=== PATIENT | female | born 1995 | race Caucasian/White ===

== ENCOUNTER → 2021-02-21 14:27 | Outpatient (BNVA) | payer MEDICAID, SELFPAY | PROVIDERS: PCP Internal Medicine; Visit Provider Advanced Practice Midwife | DX: N92.6 Irregular menstruation, unspecified (principal) | CPT/HCPCS: 99212 ==

== ENCOUNTER 2021-02-24 15:21 | Outpatient (REF) | payer MEDICAID, SELFPAY ==
--- NOTE | ~2021-02-24 | US_ITS ---
EXAMINATION: US OBSTETRICAL ULTRASOUND CLINICAL INFORMATION: Unknown LMP. COMPARISON: None. LMP: 12/19/2020. Gestational age by maternal dates is 9 weeks 4 days. Estimated date of delivery by maternal dates is 09/25/2021. TECHNIQUE: Transabdominal pelvic ultrasound was performed. FINDINGS: There is a single intrauterine gestational sac with visible yolk sac, embryo/fetus, and cardiac activity. There is no significant subchorionic hemorrhage or hematoma. HR: 156 beats per minute. CRL (crown rump length): 1.67 cm (8 weeks and 4 days +/- 4 days). DEON (estimated date of delivery): 10/05/2021 +/- 4 days. MATERNAL ADNEXA: The right maternal ovary not seen. The left maternal ovary measures 3.04 x 1.72 x 2.79 cm. There is no significant maternal adnexal mass. No maternal pelvic ascites. US/US OB <= 14 weeks fetus IMPRESSION: 1. Single intrauterine gestation with ultrasound gestational age of 8 weeks and 1 day +/- 4 days. 2. Estimated date of delivery is 10/05/2021 +/- 4 days. 3. No maternal adnexal mass or pelvic ascites.
== END 2021-02-24 15:22 | disposition home or self-care (01) ==
LOC: HO.HMGCX 15:21
PROVIDERS: PCP Internal Medicine; Visit Provider Advanced Practice Midwife
DX: N92.6 Irregular menstruation, unspecified (principal)
CPT/HCPCS: 76801

== ENCOUNTER → 2021-03-03 14:10 | Outpatient (BNVA) | payer MEDICAID, SELFPAY | PROVIDERS: PCP Internal Medicine; Visit Provider Advanced Practice Midwife | DX: Z13.89 Encounter for screening for other disorder (principal) | CPT/HCPCS: 99212 ==

== ENCOUNTER 2021-03-15 15:08 | Outpatient (REF) | payer MEDICAID, SELFPAY ==
[2021-03-16 10:37] LABS: CT PCR NOT DETECTED (Not Detect.); NG PCR NOT DETECTED (Not Detect.)
== END 2021-03-15 15:09 | disposition home or self-care (01) ==
LOC: HO.LAB 15:08
PROVIDERS: PCP Internal Medicine; Visit Provider Advanced Practice Midwife
DX: O99.281 Endocrine, nutritional and metabolic diseases complicating pregnancy, first trimester (principal); E05.00 Thyrotoxicosis with diffuse goiter without thyrotoxic crisis or storm; Z3A.11 11 weeks gestation of pregnancy; Z20.2 Contact with and (suspected) exposure to infections with a predominantly sexual mode of transmission
CPT/HCPCS: 87491; 87591; 88142; 99212

== ENCOUNTER 2021-03-18 14:35 | Outpatient (REF) | payer MEDICAID, SELFPAY ==
--- NOTE | ~2021-03-18 | US_ITS ---
EXAMINATION: OBSTETRICAL ULTRASOUND, FIRST TRIMESTER HISTORY: 25-year-old at 11.2 weeks of gestation NT screening COMPARISON: 02/24/2019 TECHNIQUE: Real time transabdominal imaging with color and M-mode Doppler. FINDINGS: A single, live IUP CRL of 44.5 mm c/w 11.2wks is noted. Heart Rate: 163 beats per minute. Normal yolk sac seen. NT was 0.9.mm. NB Present The embryo appears sonographically wnl for this GA. Both maternal ovaries are seen and appear normal. GESTATIONAL AGE: 1. Established GA: 11.2 wks 2. GA from [facility]: 11.2 wks ESTIMATED DATE OF DELIVERY: 1. Established DEON: 10/05/2021 2. DEON from A: 10/05/2021 US/US OB 1T nuc measure IMPRESSION: 1. A single live IUP 2. Size equals dates 3. NT of 0.9 mm MFM Consultation: I reviewed the ultrasound findings along with significance of NT measurement. The NT of less than 3mm is generally reassuring. However, the sensitivity for T21 detection is only 60%. I reviewed the availability of serum aneuploidy screening which includes cell-free DNA and placental protein based tests. I discussed the sensitivity, false-positive rate, and other limitations associated with each test. I also reviewed the availability of invasive diagnostic tests that are associated small but definite risk of miscarriage. We also reviewed the differences between screening tests and diagnostic tests. After our discussion, she opted for the First trimester screening that is based on cell-free DNA or non-invasive testing (NIPT). A follow up at 18 weeks for survey has been scheduled. Thank you very much for this referral. Total time 20 minutes. The time spent was devoted to counseling the patient about the disease and diagnosis, coordinating care including reviewing her records, pertinent lab data and studies, as well as discussing diagnostic evaluation and workup, plan therapeutic interventions and future disposition of care. This includes any additional research needed to obtain further information in formulating the plan of care of this patient. This note was generated with a voice recognition program. Please excuse any errors which may have been overlooked during my review of this note. Sometimes these errors may affect the content or meaning of a given sentence.
== END 2021-03-18 14:36 | disposition home or self-care (01) ==
LOC: HO.US 14:35
PROVIDERS: Visit Provider Advanced Practice Midwife
DX: Z36.82 Encounter for antenatal screening for nuchal translucency (principal)
CPT/HCPCS: 76813

== ENCOUNTER → 2021-04-13 14:33 | Outpatient (BNVA) | payer MEDICAID, SELFPAY | PROVIDERS: PCP Internal Medicine; Visit Provider Advanced Practice Midwife | DX: Z36.3 Encounter for antenatal screening for malformations (principal); Z34.91 Encounter for supervision of normal pregnancy, unspecified, first trimester; Z3A.15 15 weeks gestation of pregnancy | CPT/HCPCS: 81003; 99212 ==

== ENCOUNTER 2021-05-06 13:13 | Outpatient (REF) | payer MEDICAID, SELFPAY ==
--- NOTE | ~2021-05-06 | US_ITS ---
EXAMINATION: US OBSTETRICAL CLINICAL INFORMATION: 25-year-old at 18.2 weeks of gestation Suspected anomaly COMPARISON: 03/18/2021 TECHNIQUE: Real-time transabdominal ultrasound was performed using C1-5 megahertz transducer. FINDINGS: A single, active, fetus is seen in vertex presentation. The placenta is posterior without previa, and the amniotic fluid volume is wnl. MEASUREMENTS: 1. Biparietal Diameter: 4.1 cm; 18.4 wks 2. Occipital Frontal Diameter: 5.2 cm 3. Head Circumference: 15.0 cm; 18.1 wks 4. Abdominal Circumference: 12.3 cm; 18.0 wks 5. Femur Length: 2.6 cm; 18.1 wks 6. Humerus Length: 4.5 cm; 17.5 wks 7. Tibia Length: 2.1 cm; 17.5 wks 8. Ulna Length: 2.3 cm; 18.3 wks 9. Lateral ventricle: 0.5 cm 10. Cerebellum: 1.9 cm; 19.0 wks 11. Cisterna Magna: 0.3 cm 12. Nuchal Fold: 3.4 mm 13. Heart Rate: 152 beats per minute Rt ovary: normal Lt ovary: normal Cervical length 3.2 cm on T/A. GESTATIONAL AGE: 1. Established GA: 18.2 wks 2. GA from [facility]: 18.2 wks ESTIMATED DATE OF DELIVERY: 1. Established DEON: 10/05/2021 2. DEON from [facility]: 10/05/2021 ANATOMY: The visualized anatomy includes but not limited to: 1. Cranium: Normal 2. Intracranial anatomy: cavum septum pellucidi, lateral ventricles, choroid plexus, cerebellum, posterior fossa, third and fourth ventricles. 3. face: orbits, lip/palate, profile, nasal bone 4. Heart: four-chamber view of the heart, ventricular septum, foramen ovale, pulmonary vein, left and right outflow tracts, three-vessel view, 3 vessel trachea view, aortic and ductal arches, situs.. 5. Diaphragm: Normal 6. Abdominal wall: Normal 7. Cord Insertion: Normal 8. Spine: Cervical, thoracic, lumbar, sacral. 9. Stomach: Normal size and shape 10. Right Kidney: Normal 11. Left Kidney: Normal 12. 3 vessel cord: Normal 13. Upper extremity: Open hands, fifth digit. 14. Lower extremity: Tibia, fibula, bilateral feet. 15. Bladder: Normal 16. Genitalia: Female, patient unaware US/US OB /maternal detail IMPRESSION: 1. Single, living, intrauterine with appropriate biometry. 2. Normal survey DISCUSSION: I reviewed today's ultrasound findings. We discussed the limitations of ultrasound in diagnosing aneuploidy and other congenital abnormalities. I reviewed the differences between screening test and diagnostic test. Amniocentesis was discussed and declined. She was informed that the baseline incidence of congenital abnormalities is approximately 3-5%. Not all these conditions are diagnosable in utero. RECOMMENDATIONS: 1. Follow-up as clinically indicated Thank you for allowing me to participate in her care. Total time 20 minutes. The time spent was devoted to counseling the patient about the disease and diagnosis, coordinating care including reviewing her records, pertinent lab data and studies, as well as discussing diagnostic evaluation and workup, plan therapeutic interventions and future disposition of care. This includes any additional research needed to obtain further information in formulating the plan of care of this patient. This note was generated with a voice recognition program. Please excuse any errors which may have been overlooked during my review of this note. Sometimes these errors may affect the content or meaning of a given sentence.
== END 2021-05-06 13:14 | disposition home or self-care (01) ==
LOC: HO.US 13:13
PROVIDERS: Visit Provider Advanced Practice Midwife
DX: Z34.92 Encounter for supervision of normal pregnancy, unspecified, second trimester (principal); Z36.3 Encounter for antenatal screening for malformations
CPT/HCPCS: 76811

== ENCOUNTER → 2021-05-12 14:22 | Outpatient (BNVA) | payer MEDICAID, SELFPAY | PROVIDERS: Visit Provider Advanced Practice Midwife | DX: Z34.02 Encounter for supervision of normal first pregnancy, second trimester (principal); Z3A.19 19 weeks gestation of pregnancy | CPT/HCPCS: 99212 ==

== ENCOUNTER → 2021-06-09 15:02 | Outpatient (BNVA) | payer MEDICAID, SELFPAY | PROVIDERS: Visit Provider Advanced Practice Midwife ==

== ENCOUNTER 2021-06-15 11:57 | Outpatient (REF) | payer MEDICAID, SELFPAY ==
[2021-06-15 13:32] LABS: Appearance Urine CLEAR; Color Urine YELLOW; Glucose Urine UA NEG (NEG); Leukocyte Esterase Urine NEG (NEG); Nitrite Urine NEG (NEG); PH 6.5 (5.0-8.0); Specific Gravity - Urine 1.015 (1.005-1.025); Urine Blood NEG (NEG); Urine Ketones NEG (NEG); Urine Protein NEG (NEG-TRACE)
[2021-06-15 13:54] LABS: Amphetamine Screen Urine Not Detected (Not Detect); Barbiturates, Urine Not Detected (Not Detect); Benzodiazepines Screen Urine Not Detected (Not Detect); Cannabinoid Screen Urine Not Detected (Not Detect); Cocaine Screen Urine Not Detected (Not Detect); Fentanyl, urine Not Detected (Not Detect); Opiate Screen Urine Not Detected (Not Detect); Phencyclidine Screen Urine Not Detected (Not Detect)
[2021-06-15 14:22] LABS: Hematocrit 34.6 % (37-47); Mean Corpuscular HGB Conc 34.7 g/dl (31.0-35.0); Mean Corpuscular Hemoglobin 28.8 pg (27.0-33.0); Mean Corpuscular Volume 83.2 fL (80-98); Mean Platelet Volume 10.9 fL (9.4-12.3); Platelet Count 226 X10*3/uL (160-400); Red Blood Count 4.16 X10*6/uL (4.20-5.50); White Blood Count 9.9 X10*3/uL (4.8-10.8)
[2021-06-15 14:42] LABS: Glucose 1 Hour PP 50gm Dose 97 mg/dL (60-140)
[2021-06-15 15:08] LABS: TSH reflex Free T4 (Prenatal) < 0.01 uIU/mL (0.32-4.0)
[2021-06-15 15:14] LABS: Syphilis Screen Nonreactive (Nonreactive)
[2021-06-15 15:52] LABS: Free T4 (Free Thyroxine) 1.15 ng/dL (0.71-1.85)
[2021-06-16 04:26] LABS: HBsAGNum1 0.72 S/CO (0.00-0.99); HIV AB/AG Nonreactive (Nonreactive); HIV Num 1 0.06 S/CO (0.00-0.99); Hepatitis B Surface Antigen Negative (Negative); ~HepC Num1 0.12 S/CO (0.00-0.79); ~Hepatitis C Antibody Nonreactive (Nonreactive)
== END 2021-06-15 11:58 | disposition home or self-care (01) ==
LOC: HO.LAB 11:57
PROVIDERS: Absent Provider Advanced Practice Midwife; Visit Provider Advanced Practice Midwife
DX: Z34.90 Encounter for supervision of normal pregnancy, unspecified, unspecified trimester (principal)
CPT/HCPCS: 80307; 81003; 84439; 85027; 86762; 86780; 86787; 86803; 86850; 86900; 86901; 87086; 87088; 87186; 87340; 87389

== ENCOUNTER → 2021-07-07 14:36 | Outpatient (BNVA) | payer MEDICAID, SELFPAY | PROVIDERS: Visit Provider Advanced Practice Midwife | DX: Z34.02 Encounter for supervision of normal first pregnancy, second trimester (principal); Z3A.27 27 weeks gestation of pregnancy; Z13.31 Encounter for screening for depression | CPT/HCPCS: 81003; 99212 ==

== ENCOUNTER → 2021-07-25 15:06 | Outpatient (BNVA) | payer MEDICAID, SELFPAY | PROVIDERS: Visit Provider Obstetrics & Gynecology | DX: O99.283 Endocrine, nutritional and metabolic diseases complicating pregnancy, third trimester (principal); E05.00 Thyrotoxicosis with diffuse goiter without thyrotoxic crisis or storm; Z3A.29 29 weeks gestation of pregnancy | CPT/HCPCS: 99212 ==

== ENCOUNTER 2021-07-29 10:03 | Outpatient (REF) | payer MEDICAID, SELFPAY ==
--- NOTE | ~2021-07-29 | US_ITS ---
EXAMINATION: OBSTETRICAL ULTRASOUND, Follow up HISTORY: 21-year-old at the 30.2 weeks of gestation Size date discrepancy Graves' disease COMPARISON: 05/06/2021 TECHNIQUE: Real time transabdominal imaging with color and M-mode Doppler. PRESENTATION: Vertex PLACENTA LOCATION: Posterior without previa AMNIOTIC FLUID: MARTY 14.5 MEASUREMENTS: 1. Biparietal Diameter: 6.8 cm; 27.3 wks 2. Head Circumference: 26.7 cm; 29.2 wks 3. Abdominal Circumference: 25.4 cm; 29.5 wks 4. Femur Length: 5.8 cm; 29.4 wks 5. Heart Rate: 132 beats per minute WEIGHT: EFW: 1380 grams (3 lbs 1 oz) -- 13 %. BIOPHYSICAL PROFILE: Motion: 2 Tone: 2 Breathin Amniotic Fluid: 2 Total score: 8/8 Doppler: UA SD 3.2 GESTATIONAL AGE: 1. Established GA: 30.2 wks 2. GA from [facility]: 29.0 wks ESTIMATED DATE OF DELIVERY: 1. Established DEON: 10/05/2021 2. DEON from [facility]: 10/14/2021 US/US OB follow up IMPRESSION: 1. Single active fetus is in vertex presentation 2. Size equals dates, EFW corresponds to 13th percentile 3. Reassuring biophysical profile with normal amniotic fluid index The patient was recently diagnosed with Graves' disease. So far she denies symptomatic hyperthyroidism and has done well without treatment. She has an stereotype finisher monitoring her thyroid function. However, treatment with the methimazole is being considered. I informed the patient that use of methimazole in appears to be acceptable, especially in second and third trimester. The alternative is PTU which has similar side effect profile. I reviewed the potential risks to the fetus of uncontrolled hyperthyroidism. In addition we discussed the impact of long lasting thyroid receptor stimulating antibody on the fetus. She will be transferring her obstetrical care to [facility] where her stereotype finisher is. Thank you very much for this referral. Total time 30 minutes. The time spent was devoted to counseling the patient about the disease and diagnosis, coordinating care including reviewing her records, pertinent lab data and studies, as well as discussing diagnostic evaluation and workup, plan therapeutic interventions and future disposition of care. This includes any additional research needed to obtain further information in formulating the plan of care of this patient. This note was generated with a voice recognition program. Please excuse any errors which may have been overlooked during my review of this note. Sometimes these errors may affect the content or meaning of a given sentence.
--- NOTE | ~2021-07-29 | US_ITS ---
EXAMINATION: OBSTETRICAL ULTRASOUND, Follow up HISTORY: 21-year-old at the 30.2 weeks of gestation Size date discrepancy Graves' disease COMPARISON: 05/06/2021 TECHNIQUE: Real time transabdominal imaging with color and M-mode Doppler. PRESENTATION: Vertex PLACENTA LOCATION: Posterior without previa AMNIOTIC FLUID: MARTY 14.5 MEASUREMENTS: 1. Biparietal Diameter: 6.8 cm; 27.3 wks 2. Head Circumference: 26.7 cm; 29.2 wks 3. Abdominal Circumference: 25.4 cm; 29.5 wks 4. Femur Length: 5.8 cm; 29.4 wks 5. Heart Rate: 132 beats per minute WEIGHT: EFW: 1380 grams (3 lbs 1 oz) -- 13 %. BIOPHYSICAL PROFILE: Motion: 2 Tone: 2 Breathin Amniotic Fluid: 2 Total score: 8/8 Doppler: UA SD 3.2 GESTATIONAL AGE: 1. Established GA: 30.2 wks 2. GA from [facility]: 29.0 wks ESTIMATED DATE OF DELIVERY: 1. Established DEON: 10/05/2021 2. DEON from [facility]: 10/14/2021 US/US OB velocimetry umbilical ar IMPRESSION: 1. Single active fetus is in vertex presentation 2. Size equals dates, EFW corresponds to 13th percentile 3. Reassuring biophysical profile with normal amniotic fluid index The patient was recently diagnosed with Graves' disease. So far she denies symptomatic hyperthyroidism and has done well without treatment. She has an business quality assurance analyst monitoring her thyroid function. However, treatment with the methimazole is being considered. I informed the patient that use of methimazole in appears to be acceptable, especially in second and third trimester. The alternative is PTU which has similar side effect profile. I reviewed the potential risks to the fetus of uncontrolled hyperthyroidism. In addition we discussed the impact of long lasting thyroid receptor stimulating antibody on the fetus. She will be transferring her obstetrical care to [facility] where her business quality assurance analyst is. Thank you very much for this referral. Total time 30 minutes. The time spent was devoted to counseling the patient about the disease and diagnosis, coordinating care including reviewing her records, pertinent lab data and studies, as well as discussing diagnostic evaluation and workup, plan therapeutic interventions and future disposition of care. This includes any additional research needed to obtain further information in formulating the plan of care of this patient. This note was generated with a voice recognition program. Please excuse any errors which may have been overlooked during my review of this note. Sometimes these errors may affect the content or meaning of a given sentence.
== END 2021-07-29 10:04 | disposition home or self-care (01) ==
LOC: HO.US 10:03
PROVIDERS: Visit Provider Obstetrics & Gynecology
DX: O26.899 Other specified pregnancy related conditions, unspecified trimester (principal); E05.00 Thyrotoxicosis with diffuse goiter without thyrotoxic crisis or storm
CPT/HCPCS: 76816; 76820

== ENCOUNTER → 2021-11-07 11:35 | Outpatient (BNVA) | payer MEDICAID, SELFPAY | PROVIDERS: Visit Provider Advanced Practice Midwife ==

== ENCOUNTER → 2021-11-09 10:08 | Outpatient (BNVA) | payer MEDICAID, SELFPAY | PROVIDERS: PCP Internal Medicine; Visit Provider Advanced Practice Midwife | DX: Z30.46 Encounter for surveillance of implantable subdermal contraceptive (principal); Z30.41 Encounter for surveillance of contraceptive pills | CPT/HCPCS: 11982 ==

== ENCOUNTER 2022-09-14 23:30 | Emergency (ER) | payer MEDICAID, SELFPAY ==
[2022-09-14 23:34] VITALS: BP 125/76; PULSE 96; RESP 20; TEMP 36.2; O2SAT 97; BMI 24.3
[2022-09-15 00:22] LABS: Strep A Nucleic Acid Negative (Negative)
[2022-09-15 00:37] LABS: COVID-19 Test Negative (Negative); IDNOW Serial# 16C4AD1C; IDNOW Serial# BCCEAD1C; Influenza A Negative (Negative); Influenza B2 Negative (Negative)
--- NOTE | 2022-09-15 00:45 | ED.URI ---
HPI - URI/Sore Throat General Chief Complaint: Upper Respiratory Symptoms Stated Complaint: tonsil pain Time Seen by Provider: 09/15/22 00:45 Source: patient Mode of arrival: ambulatory Limitations: no limitations History of Present Illness HPI Narrative: 26-year-old female presents with tonsillar pain. States that she has had intermittent tonsillar pain over the past few weeks, over the last week she has had flu-like symptoms accompanied with her tonsillar pain. She is able to swallow secretions, but is difficult for her to swallow food. She reports intermittent fevers, and fatigue. MD elicited complaint: fever and sore throat Onset (ago): week(s) (2) Consistency: intermittent and progressively worsening Severity: moderate Pain scale (0-10): 7 Description of mucous: clear Able to tolerate fluids by mouth: Yes Exacerbating factors: swallowing Relieving factors: nothing Context: sick contacts Associated symptoms: fever, myalgias and sore throat Treatments prior to arrival: acetaminophen, ibuprofen and antibiotics Related Data Home Medications Medication Instructions Recorded Confirmed desogestrel-e.estradiol 0.15 1 tab PO DAILY 11/07/21 mg-0.02 mg(21)/e.estrad 0.01 mg(5) tablet (Kariva (28)) Previous Rx's Medication Instructions Recorded amoxicillin 875 mg-potassium 1 tab PO Q12H 10 days #20 tabs 09/15/22 clavulanate 125 mg tablet Allergies Allergy/AdvReac Type Severity Reaction Status Date / Time No Known Allergies Allergy Verified 09/14/22 23:37 Review of Systems Review of Systems: Constitutional: positive Fever, positive Chills, positive fatigue, positive Malaise ENT/Mouth: positive sore throat, no runny nose Eyes: No redness or pain. Cardiovascular: No Chest Pain, No SOB Respiratory: No Cough, No Sputum, No Wheezing, No Smoke Exposure, No Dyspnea Gastrointestinal: No Nausea, No Vomiting, No Diarrhea Musculoskeletal: positive Myalgia Skin: No rash Neuro: No Headache Yes all other systems are reviewed and are negative PMFSH Past Medical History Attestation statement: The following information was validated with the patient. Source: old records reviewed Medical History COVID-19 Graves' disease Surgical History History of breast surgery Family History Family History Father HTN (hypertension) Mother No problems noted. Maternal Grandmother Alzheimer's dementia Maternal Grandfather Kidney disease Dialysis patient Paternal Grandmother Mitral valve prolapse Colon cancer Paternal Grandfather CAD (coronary artery disease) Social History Social History Household Members: Significant Other and Children Household Members Other:: Children of significant other Housing: Apartment Are you a primary medical care administrator to a significant other at home: No Do you presently have visiting nurse or other home services: No Alcohol intake: never Patient Tobacco Use Status: Never used Tobacco Advance Directives: No Advance Directives Information Provided: Yes Physical Exam Vital Signs: Vital Signs: Last Vital Signs Temp 97.2 F 09/14/22 23:34 Pulse 96 09/14/22 23:34 Resp 20 09/14/22 23:34 BP 125/76 09/14/22 23:34 Pulse Ox 97 09/14/22 23:34 O2 Del Method 09/14/22 23:34 BMI result Body Mass Index 24.3 Appearance: Alert. Oriented X3. Moderate distress. Eyes: Pupils equal, round and reactive to light. Sclera nonicteric. ENT: Pharynx erythematous with bilateral tonsillar exudates. No indication of abscess or tonsillar swelling. Neck: Normal inspection. Neck supple. Anterior posterior cervical lymphadenopathy noted. No mastoid tenderness noted. No vertebral tenderness or nuchal rigidity. No meningeal signs. CVS: Normal heart rate and rhythm. Pulses normal. Respiratory: No respiratory distress. Breath sounds normal. Abdomen: Soft and nontender. No hepatosplenomegaly. Skin: Skin warm and dry. Normal skin color. Normal skin turgor. Extremities: Gait well-balanced well coordinated. Neuro: No motor deficit. No sensory deficit. Cranial nerves 2-12 intact. Course Course Course Narrative: 26-year-old female presents with 2 weeks of upper respiratory symptoms, with worsening tonsillar pain. Physical exam indicates pharyngeal erythema with bilateral tonsillar exudates. Tonsils are not swollen, no indication of abscess or epiglottitis. Patient has been taking amoxicillin, was left over from her daughter's dose for strep 2 weeks ago. Although COVID influenza and strep a test are negative, I feel that patient's symptoms are consistent with strep a pharyngitis. I will treat with Augmentin. Patient understands that she should not be taking antibiotics that are not prescribed to her. Supportive measures of Tylenol, Motrin, and salt water gargle discussed. Patient verbalized understanding of and agrees to plan of care discharge home. Verbalized understanding of signs and symptoms indicating need for emergent intervention. Medical Decision Making Medical Decision Making Differential Diagnoses: Differential diagnosis (Influenza, COVID, pharyngitis, epiglottitis, abscess) Consideration of admission/observation: Consideration of Admission/Observation (Patient does not require admission) Lab Attestation: I reviewed the patient's lab results. Lab results narrative: Negative results Tests considered but not performed: Tests Considered But Not Performed (CT scan to rule out peritonsillar abscess, however patient's tonsils are bilaterally equal without significant swelling. Low likelihood of abscess at this time.) Discharge Plan Discharge Clinical Impression: Pharyngitis Patient Disposition: Home, Self-Care Instructions: Pharyngitis (ED) Additional Instructions: You were evaluated for 2 weeks of intermittent upper respiratory symptoms, with worsening tonsillar pain. You do have bilateral tonsillar exudates and redness to the back of the throat consistent with strep pharyngitis. Your strep pharyngitis test was negative however your physical exam is positive. Please take Augmentin 875 mg twice a day for the next 10 days. Take Tylenol 650 mg every 6 hours and Motrin 600 mg every 6 hours as needed for pain and fever management. Write down what time you take these medications to prevent accidental overdose. Use warm water sea salt gargles, consider using honey and [id number] lidocaine lozenges to help with pain. Follow the directions on the package for lidocaine lozenges. Thank you for choosing this emergency department for evaluation. Please follow-up with primary care physician as needed. Return to the emergency department for any new, concerning, or worsening symptoms. Prescriptions: New amoxicillin-pot clavulanate 875-125 mg tablet 1 tab PO Q12H 10 Days Qty: 20 0RF No Action desog-e.estradiol/e.estradiol [Kariva (28)] 0.15-0.02 mgx21 /0.01 mg x 5 tablet 1 tab PO DAILY
[2022-09-15] MEDS: Amoxicillin/Potassium Clav 875 MG TABLET PO (01:30)
== END 2022-09-15 02:49 | disposition home or self-care (01) ==
PROVIDERS: Emergency Provider Internal Medicine
DX: J02.9 Acute pharyngitis, unspecified (principal); R50.9 Fever, unspecified; M79.10 Myalgia, unspecified site; Z20.822 Contact with and (suspected) exposure to COVID-19; Z79.899 Other long term (current) drug therapy
CPT/HCPCS: 87502; 87635; 87651; 99282; 99283

== ENCOUNTER 2023-03-15 18:16 | Emergency (ER) | payer OTHER, SELFPAY ==
[2023-03-15 18:29] VITALS: BP 119/67; PULSE 90; RESP 16; TEMP 36.6; O2SAT 97; BMI 26.0
--- NOTE | 2023-03-15 18:31 | ED_ITS ---
HPI - General Adult General Chief complaint: General Medical Stated complaint: Discomfort in uterus Time Seen by Provider: 03/15/23 19:48 Source: patient Mode of arrival: ambulatory Limitations: no limitations History of Present Illness HPI narrative: 27-year-old female presents to the ED white vaginal discharge, vaginal itching, and uterine discomfort. patient denies any vaginal bleeding, vaginal lesions, flank pain, dysuria, hematuria, nausea, vomitting, or any pmh of STDs. patient states normal STD testing in [facility]. patient states she fell on her back two days ago. patient denies hitting head, loss of concsiosuness, vaginal bleeding, rectal bleeding, vomitting, blood, blood in urine, chest pain, headache, nausea, or vomitting. Related Data Home Medications Medication Instructions Recorded Confirmed desogestrel-e.estradiol 0.15 1 tab PO DAILY 11/07/21 mg-0.02 mg(21)/e.estrad 0.01 mg(5) tablet (Kariva (28)) Previous Rx's Medication Instructions Recorded amoxicillin 875 mg-potassium 1 tab PO Q12H 10 days #20 tabs 09/15/22 clavulanate 125 mg tablet metronidazole 500 mg tablet 500 mg PO Q12H 7 days #14 tabs 03/15/23 Allergies Allergy/AdvReac Type Severity Reaction Status Date / Time No Known Allergies Allergy Verified 03/15/23 18:29 Review of Systems Review of Systems: vaginal discharge, vaginal itchienss, uterine discmofot Yes all other systems are reviewed and are negative PMFSH Past Medical History Medical History COVID-19 Graves' disease Surgical History History of breast surgery Family History Family History Father HTN (hypertension) Mother No problems noted. Maternal Grandmother Alzheimer's dementia Maternal Grandfather Kidney disease Dialysis patient Paternal Grandmother Mitral valve prolapse Colon cancer Paternal Grandfather CAD (coronary artery disease) Social History Social History Household Members: Significant Other and Children Household Members Other:: Children of significant other Housing: Apartment Are you a primary child care lead teacher to a significant other at home: No Do you presently have visiting nurse or other home services: No Alcohol intake: never Patient Tobacco Use Status: Never used Tobacco Advance Directives: No Advance Directives Information Provided: No Physical Exam ED Vital Signs: Vital Signs - 24 hr 03/15/23 18:29 Temperature 97.8 F Pulse Rate 90 Respiratory Rate 16 Blood Pressure 119/67 Pulse Oximetry 97 Oxygen Delivery Method Room Air BMI result Body Mass Index 26.0 Const General: cooperative, healthy appearing, comfortable, no acute distress, well developed, alert, awake and Physically active Orientation/consciousness: oriented to person, oriented to place, oriented to time and patient oriented x3 HENMT Head: Yes normal to inspection, Yes No palpable skull fracture present, Yes normocephalic, Yes atraumatic and No abrasion Ears: hearing grossly normal bilaterally, external ears normal, TM's normal bilaterally, EAC's normal, mastoids normal and no periauricular adenopathy Throat: Yes posterior oropharynx normal, Yes tonsils normal and Yes uvula midline Eyes General: appearance normal, both eyes and all related structures Neck Neck: Yes normal visual inspection, Yes full ROM, Yes no lymphadenopathy, Yes no meningeal signs, Yes trachea midline, Yes supple, No anterior neck swelling and No tender Chest Chest palpation & inspection: normal inspection of the chest and normal palpation of entire chest wall Resp Effort & Inspection: normal respiratory effort and able to speak in complete sentences Auscultation: clear to auscultation bilaterally Cardio Jugular venous distension: no JVD Heart sounds: S1 normal heart sound present and S2 normal heart sound present GI Inspection: Yes normal to inspection and No abdominal wall ecchymosis Palpation (GI): Soft to palpation, not firm, nontender, no guarding and not ri gid General: No CVA tenderness and Yes no CVA tenderness External Female Exam: normal external appearance Speculum Exam - Vagina: abnormal vaginal discharge white (white cottage cheese) Speculum Exam - Cervix: normal appearance of the cervix Bimanual exam- vagina & uterus: normal bimanual exam Back/Spine/Pelvis Back: no CVA tenderness, No CVA tenderness and No back tenderness Skin General skin exam: no rashes or lesions noted and elasticity normal Neuro General: oriented to person, oriented to place, oriented to time, patient oriented x3, gait normal, tone normal, moves all extremities, Normal light touch and pain sensation, no meningeal signs, no focal motor deficits, CN's II-XI intact bilaterally and normal sensation to monofilament Extrem General: Yes normal to inspection and Yes full ROM Psych Appearance: grossly normal, well kempt and not disheveled Course Course Course Narrative: RME- 27 year old female presents for evaluation of lower abdominal / pelvis pain. She reports that she got her IUD removed 3 months ago. Also endorses white vaginal discharge. Denies new sexual partners or concern for STIs Reevaluation(s) Reevaluation #1: Pelvic exam positive for yeast like vaginitis disccharge. patient does not want Emperic treatment for CTNG. Presently no indication for ultrasound. not suspecting ovarian torsions/abscess, uterine rupture/fibroid rupture. Abdomen is bening. Medications Administered Discontinued Medications Generic Name Dose Route Start Last Admin Trade Name Freq PRN Reason Stop Dose Admin Fluconazole 150 mg 03/15/23 21:10 03/15/23 21:16 Fluconazole 150 Mg Tablet PO 03/15/23 21:11 150 mg ONCE ONE Administration Medical Decision Making Medical Decision Making [facility] Narrative: 27 yold female presents to the ED for vaginal dsicharge, vaginal itching, and uterine discomfot. abdominal exam is bening. labs normal and UA negative for /UTI. exam inidicate vaginitits. patient deos not emperic STI treatment. Patient given one dose of dilfucan into the ED. Differential Diagnosis Differential Diagnoses: The differential diagnosis associated with the presentation includes (UTI, , CTNG, PID, Ovarian torsion/abscess, fibroids rupture, uterine rupture, Vaginitis) Admission/Observation Consideration of admission/observation: Escalation of care including admission/observation considered Lab Data [facility] Lab Attestation statement: I reviewed the patient's lab results. 03/15/23 18:46 03/15/23 18:46 Labs: Lab Results 03/15/23 03/15/23 03/15/23 Range/Units 18:46 18:46 19:21 WBC 8.1 (4.8-10.8) X10*3/uL RBC 4.87 (4.20-5.50) X10*6/uL Hgb 13.2 (12.0-16.0) g/dl Hct 39.2 (37.0-47.0) % MCV 80.5 (80.0-98.0) fL MCH 27.1 (27.0-33.0) pg MCHC 33.7 (31.0-35.0) g/dl RDW 12.6 (11.0-16.0) % Plt Count 252 (160-400) X10*3/uL MPV 11.0 (9.4-12.3) fL Immature Gran % (Auto) 0.1 (0.0-0.4) % Neut % (Auto) 59.4 (45-73) % Lymph % (Auto) 30.2 (20-40) % [place] % (Auto) 8.6 (2-11) % Eos % (Auto) 1.5 (0-4) % Baso % (Auto) 0.2 (0-2) % Lymph # (Auto) 2.4 (1.2-4.9) X10*3/uL [place] # (Auto) 0.7 (0.1-1.2) X10*3/uL Eos # (Auto) 0.1 (0.0-0.4) X10*3/uL Baso # (Auto) 0.0 (0.0-0.2) X10*3/uL Abs Immat Gran (auto) 0.01 (0.00-0.03) X10*3/uL Absolute Neuts (auto) 4.8 (2.0-8.3) x10*3/uL Absolute Nucleated RBC 0.000 (0.0-0.012) X10*3/uL Nucleated RBC % (auto) 0.0 (0.0-0.2) /100WBC Sodium 143 (135-145) mmol/L Potassium 4.1 (3.3-5.1) mmol/L Chloride 108 (96-108) mmol/L Carbon Dioxide 26 (22-29) mmol/L Anion Gap 13 (12-20) BUN 10 (9-16) mg/dL Creatinine 0.74 (0.5-1.4) mg/dL Estim Creat Clear Calc 98.9 Estimated GFR > 60 Random Glucose 95 (60-115) mg/dL Calcium 9.4 (8.4-10.2) mg/dL Beta HCG, Quant < 2 mIU/mL Urine Color Yellow Urine Appearance Clear Urine pH 6.0 (5.0-9.0) Ur Specific [place] 1.025 (1.005-1.025) Urine Protein Negative (Neg-Trace) mg/dL Urine Glucose (UA) Negative (Negative) mg/dL Urine Ketones Negative (Negative) mg/dL Urine Blood Negative (Negative) Urine Nitrite Negative (Negative) Ur Leukocyte Esterase Negative (Negative) Urine RBC 0-2 (0-2) /HPF Urine WBC 0-5 (0-5) /HPF Ur Squamous Epith Cells 3-5 (0-2) /HPF Urine Bacteria 4+ (None Seen) Hyaline Casts 0-2 (0-2) /LPF Urine Test (NEGATIVE) Mercy species DNA (Negative) Chlam trachomat DNA PCR (Not Detect.) Gardnerella DNA Probe (Negative) N.gonorrhoeae DNA (PCR) (Not Detect.) Trichomonas DNA Probe (Negative) 03/15/23 03/15/23 03/15/23 Range/Units 19:21 20:29 20:29 WBC (4.8-10.8) X10*3/uL RBC (4.20-5.50) X10*6/uL Hgb (12.0-16.0) g/dl Hct (37.0-47.0) % MCV (80.0-98.0) fL MCH (27.0-33.0) pg MCHC (31.0-35.0) g/dl RDW (11.0-16.0) % Plt Count (160-400) X10*3/uL MPV (9.4-12.3) fL Immature Gran % (Auto) (0.0-0.4) % Neut % (Auto) (45-73) % Lymph % (Auto) (20-40) % [place] % (Auto) (2-11) % Eos % (Auto) (0-4) % Baso % (Auto) (0-2) % Lymph # (Auto) (1.2-4.9) X10*3/uL [place] # (Auto) (0.1-1.2) X10*3/uL Eos # (Auto) (0.0-0.4) X10*3/uL Baso # (Auto) (0.0-0.2) X10*3/uL Abs Immat Gran (auto) (0.00-0.03) X10*3/uL Absolute Neuts (auto) (2.0-8.3) x10*3/uL Absolute Nucleated RBC (0.0-0.012) X10*3/uL Nucleated RBC % (auto) (0.0-0.2) /100WBC Sodium (135-145) mmol/L Potassium (3.3-5.1) mmol/L Chloride (96-108) mmol/L Carbon Dioxide (22-29) mmol/L Anion Gap (12-20) BUN (9-16) mg/dL Creatinine (0.5-1.4) mg/dL Estim Creat Clear Calc Estimated GFR Random Glucose (60-115) mg/dL Calcium (8.4-10.2) mg/dL Beta HCG, Quant mIU/mL Urine Color Urine Appearance Urine pH (5.0-9.0) Ur Specific [place] (1.005-1.025) Urine Protein (Neg-Trace) mg/dL Urine Glucose (UA) (Negative) mg/dL Urine Ketones (Negative) mg/dL Urine Blood (Negative) Urine Nitrite (Negative) Ur Leukocyte Esterase (Negative) Urine RBC (0-2) /HPF Urine WBC (0-5) /HPF Ur Squamous Epith Cells (0-2) /HPF Urine Bacteria (None Seen) Hyaline Casts (0-2) /LPF Urine Test NEGATIVE (NEGATIVE) Mercy species DNA Positive A (Negative) Chlam trachomat DNA PCR NOT DETECTED (Not Detect.) Gardnerella DNA Probe Positive A (Negative) N.gonorrhoeae DNA (PCR) NOT DETECTED (Not Detect.) Trichomonas DNA Probe Negative (Negative) Prescription Management I considered prescription management with: Antibiotic (Diflucan, metronidazole) Discharge Plan Discharge Clinical Impression: Vaginitis Patient Disposition: Home, Self-Care Instructions: Bacterial Vaginosis (ED), Yeast Infection (ED), Pelvic Pain in Women (ED), Vaginal Discharge (ED) Additional Instructions: Return to the ED immediately for any abdominal pain, vaginal bleeding, nausea, vomitting, flank pain, vaginal discharge, fever, chills, pelvic pain, or any other concerning symptoms. Please follow up with PCP and OBGYN Prescriptions: New metronidazole 500 mg tablet 500 mg PO Q12H 7 Days Qty: 14 0RF No Action amoxicillin-pot clavulanate 875-125 mg tablet 1 tab PO Q12H 10 Days Qty: 20 0RF desog-e.estradiol/e.estradiol [Brian (28)] 0.15-0.02 mgx21 /0.01 mg x 5 tablet 1 tab PO DAILY Interventions: ED Discharge Assessment Last Done: 03/15/23 21:19 Discharge Date/Time: 03/15/23 21:19 Print Language: Taiwanese
[2023-03-15 18:50] LABS: MANUAL DIFF FLAG NO
[2023-03-15 18:52] LABS: Basophils Percent Auto 0.2 % (0-2); Eosinophils Absolute Auto 0.1 X10*3/uL (0.0-0.4); Eosinophils Percent Auto 1.5 % (0-4); Hematocrit 39.2 % (37.0-47.0); Hemoglobin 13.2 g/dl (12.0-16.0); Imm Gran Abs Auto 0.01 X10*3/uL (0.00-0.03); Imm Gran Pct Auto 0.1 % (0.0-0.4); Lymphocytes Absolute Auto 2.4 X10*3/uL (1.2-4.9); Lymphocytes Percent Auto 30.2 % (20-40); Mean Corpuscular HGB Conc 33.7 g/dl (31.0-35.0); Mean Corpuscular Hemoglobin 27.1 pg (27.0-33.0); Mean Corpuscular Volume 80.5 fL (80.0-98.0); Monocytes Absolute Auto 0.7 X10*3/uL (0.1-1.2); Monocytes Percent Auto 8.6 % (2-11); Neutrophils Absolute Auto 4.8 x10*3/uL (2.0-8.3); Neutrophils Percent Auto 59.4 % (45-73); Platelet Count 252 X10*3/uL (160-400); Red Blood Count 4.87 X10*6/uL (4.20-5.50); Red Cell Distribution Width 12.6 % (11.0-16.0); White Blood Count 8.1 X10*3/uL (4.8-10.8)
[2023-03-15 19:10] LABS: Anion Gap 13 (12-20); Blood Urea Nitrogen 10 mg/dL (9-16); Calcium 9.4 mg/dL (8.4-10.2); Carbon Dioxide 26 mmol/L (22-29); Chloride 108 mmol/L (96-108); Creatinine Clr Calc Pharmacy 98.9; Estimated Glomerular Filt Rate > 60; Glucose Random 95 mg/dL (60-115); Potassium 4.1 mmol/L (3.3-5.1); Sodium 143 mmol/L (135-145)
[2023-03-15 19:11] LABS: HCG Quantitative < 2 mIU/mL
[2023-03-15 19:29] LABS: Appearance Urine Clear; Color Urine Yellow; Glucose Urine UA Negative (Negative); Leukocyte Esterase Urine Negative (Negative); Nitrite Urine Negative (Negative); Specific Gravity - Urine 1.025 (1.005-1.025); Urine Blood Negative (Negative); Urine Ketones Negative (Negative); Urine Protein Negative (Neg-Trace)
[2023-03-15 19:34] LABS: Bacteria Urine 4+ (None Seen); Hyaline Casts Urine 0-2 /LPF (0-2); RBC Urine 0-2 /HPF (0-2); WBC Urine 0-5 /HPF (0-5)
[2023-03-15 19:54] LABS: UPreg QC Valid YES; Urine Pregnancy NEGATIVE (NEGATIVE)
[2023-03-15] MEDS: Fluconazole 150 MG TABLET PO (21:16)
--- NOTE | 2023-03-15 21:19 | PC.NURSE ---
pt medicated per DEC- verbalizes understanding of Dc instructions
[2023-03-16 10:30] LABS: CT PCR NOT DETECTED (Not Detect.); NG PCR NOT DETECTED (Not Detect.)
[2023-03-16 11:13] LABS: BV Int Neg Control Negative (Negative); BV Int Pos Control Positive (Positive)
== END 2023-03-15 21:19 | disposition home or self-care (01) ==
PROVIDERS: Physician Assistant; Student in an Organized Health Care Education/Training Program; Emergency Provider Internal Medicine
DX: N76.0 Acute vaginitis (principal); R10.2 Pelvic and perineal pain
CPT/HCPCS: 0353U; 36415; 80048; 81001; 81025; 84702; 85025; 87480; 87510; 87660; 99282; 99283

== ENCOUNTER 2024-02-04 09:11 | Emergency (ER) | payer OTHER, SELFPAY ==
[2024-02-04 09:14] VITALS: BP 142/82; PULSE 113; RESP 16; TEMP 36; O2SAT 100; BMI 25.2
--- NOTE | 2024-02-04 09:49 | ED.GENADULT ---
HPI - General Adult General Chief complaint: Ear Problems Stated complaint: Bilateral ear pain Time Seen by Provider: 02/04/24 09:35 Source: patient Mode of arrival: ambulatory Limitations: no limitations History of Present Illness HPI narrative: Patient is a 28-year-old female presenting to the emergency department with complaint of bilateral ear irritation, right worse than left since last night. States that she has recently had a cold with nasal congestion and her ears felt blocked. She states last night she used a wet Q-tip to clean out her ears in the irritation increased after this. She denies fevers, cough, shortness of breath. Denies any chest pain or palpitations. Denies any sore throat or painful swallowing. MD complaint: Ear pain Onset (ago): day(s) Associated symptoms: other (Nasal congestion) Treatments prior to arrival: other (DayQuil and NyQuil) Related Data Home Medications ?Medication ?Instructions ?Recorded ?Confirmed desogestrel-e.estradiol 0.15 1 tab PO DAILY 11/07/21 mg-0.02 mg(21)/e.estrad 0.01 mg(5) tablet (Kariva (28)) Previous Rx's ?Medication ?Instructions ?Recorded amoxicillin 875 mg-potassium 1 tab PO Q12H 10 days #20 tabs 09/15/22 clavulanate 125 mg tablet metronidazole 500 mg tablet 500 mg PO Q12H 7 days #14 tabs 03/15/23 cetirizine 10 mg capsule (All Day 10 mg PO DAILY #7 caps 02/04/24 Allergy (cetirizine)) fluticasone propionate 50 2 spray intranasal DAILY 7 days 02/04/24 mcg/actuation nasal #16 grams spray,suspension (Flonase Allergy Relief) Allergies Allergy/AdvReac Type Severity Reaction Status Date / Time No Known Allergies Allergy Verified 02/04/24 09:18 Review of Systems Review of Systems: As per HPI. Yes all other systems are reviewed and are negative Constitutional: Constitutional: Reports as per HPI [facility] Past Medical History Medical History COVID-19 Graves' disease Surgical History History of breast surgery Family History Family History Father HTN (hypertension) Mother No problems noted. Maternal Grandmother Alzheimer's dementia Maternal Grandfather Kidney disease Dialysis patient Paternal Grandmother Mitral valve prolapse Colon cancer Paternal Grandfather CAD (coronary artery disease) Social History Social History Household Members: Significant Other and Children Household Members Other:: Children of significant other Housing: Apartment Are you a primary animal care supervisor to a significant other at home: No Do you presently have visiting nurse or other home services: No Alcohol intake: never Patient Tobacco Use Status: Never used Tobacco Advance Directives: No Advance Directives Information Provided: Yes Do you have a plan to hurt others: No Plan Physical Exam ED Vital Signs: Vital Signs - 24 hr 02/04/24 09:14 Temperature 96.8 F Pulse Rate 113 H Respiratory Rate 16 Blood Pressure 142/82 H Pulse Oximetry 100 Oxygen Delivery Method Room Air BMI result Body Mass Index 25.2 Vital signs have been reviewed and appear to be correct. Blood pressure normal. Heart rate normal. Respiratory rate normal. Temperature normal. Oxygen saturation normal. Const General: cooperative, healthy appearing and no acute distress Orientation/consciousness: oriented to person, oriented to place, oriented to time and patient oriented x3 Limitations: no limitations [facility] Head: Yes normocephalic and Yes atraumatic Ears: hearing grossly normal bilaterally, external ears normal, EAC's normal, mastoids normal bilaterally, no periauricular adenopathy and TM abnormal erythematous bilateral; not bulging, not with effusion, with no fluid behind the TM and not perforated General nose exam: Normal external nose present Face and sinus: Yes face symmetric Mouth: oropharynx normal and moist mucous membranes Throat: Yes uvula midline Eyes Pupils: Equal, round and reactive pupils present Neck Neck: Yes normal visual inspection and Yes supple Resp Effort & Inspection: normal respiratory effort and able to speak in complete sentences Auscultation: clear to auscultation bilaterally Cardio Rate: regular rate Rhythm: regular rhythm Heart sounds: S1 normal heart sound present and S2 normal heart sound present GI Palpation (GI): Soft to palpation and nontender Auscultation: normoactive bowel sounds General: Yes no CVA tenderness Back/Spine/Pelvis Back: no CVA tenderness Skin General skin exam: elasticity normal and turgor normal Neuro General: oriented to person, oriented to place, oriented to time, patient oriented x3, moves all extremities, no focal motor deficits and CN's II-XI intact bilaterally Cranial nerves: Yes Equal, round and reactive pupils present Cognition (Neuro): normal cognition Extrem General: Yes full ROM, Yes no pedal edema and Yes no calf tenderness Psych Mental Status: mental status grossly normal Affect: normal affect Thought process: Normal thought process present Medical Decision Making Medical Decision Making [facility] Narrative: Patient is a 28-year-old female presenting to the emergency department with complaint of bilateral ear irritation, right worse than left since last night. On exam patient is awake, A+Ox3, VS WNL, afebrile, normal neurological exam without focal deficits, physical exam findings as above. Given reported symptoms and physical exam findings, initial differential includes localized irritation to TMs, otitis media, otitis externa. Do not suspect mastoiditis. Discussed with patient that physical exam findings are not consistent with infection at this time. Advised patient to begin using a daily allergy medications such as cetirizine or loratadine as well as Flonase to decrease inflammation. Discussed with patient that she should not insert Q-tips or any other small items into her ear canal as this can cause damage to her TM. Patient is specifically requesting antibiotics and discussed with patient that antibiotics are not indicated at this time. Return precautions discussed. Patient verbalized understanding of plan. Differential Diagnosis Differential Diagnoses: The differential diagnosis associated with the presentation includes As per MDM. External Record Review External record reviewed: Inpatient record, Office record and Outpatient record Prescription Management I considered prescription management with: Other Discharge Plan Discharge Clinical Impression: Irritation of tympanic membrane of both ears Patient Disposition: Home, Self-Care Additional Instructions: You were evaluated in the emergency department today for complaint of pain to both ears. Your evaluation did not show evidence of any infection. It does show evidence of some irritation to her eardrums. We recommend that you begin taking a daily loratadine (Claritin) or cetirizine (Zyrtec) as well as begin using [id number] Flonase. You should not insert Q-tips or any other small objects into her ear canals as this can cause further irritation and damage to her eardrums. Please follow-up with your primary care provider. Return to the emergency department if you develop increasing pain, fever, difficulty hearing or any other concerning symptoms. Prescriptions: New fluticasone propionate [Flonase Allergy Relief] 50 mcg/actuation spray,suspension 2 spray intranasal DAILY 7 Days Qty: 16 0RF Rx Instructions: administer into each nostril All Day Allergy (cetirizine) 10 mg capsule 10 mg PO DAILY Qty: 7 0RF No Action amoxicillin-pot clavulanate 875-125 mg tablet 1 tab PO Q12H 10 Days Qty: 20 0RF metronidazole 500 mg tablet 500 mg PO Q12H 7 Days Qty: 14 0RF desog-e.estradiol/e.estradiol [Kodyiva (28)] 0.15-0.02 mgx21 /0.01 mg x 5 tablet 1 tab PO DAILY Print Language: Taiwanese
[2024-02-04 10:31] VITALS: BP 129/76; PULSE 107; RESP 18; TEMP 36.7; O2SAT 100
[2024-02-04 10:32] LABS: Influenza A PCR NEGATIVE (Negative); Influenza B PCR NEGATIVE (Negative); Resp Syncy Virus RNA Qual PCR NEGATIVE (Negative); SARS COV2 PCR INHOUSE NEGATIVE (Negative)
== END 2024-02-04 10:32 | disposition home or self-care (01) ==
PROVIDERS: Emergency Provider Emergency Medicine; PCP Internal Medicine
DX: H92.03 Otalgia, bilateral (principal); Z11.52 Encounter for screening for COVID-19; Z20.822 Contact with and (suspected) exposure to COVID-19
CPT/HCPCS: 0241U; 99282; 99283

== ENCOUNTER 2025-03-04 11:45 | Emergency (ER) | payer OTHER, SELFPAY ==
[2025-03-04 12:21] VITALS: BP 131/72; PULSE 104; RESP 16; TEMP 37; O2SAT 100; BMI 25.1
--- NOTE | 2025-03-04 12:24 | ED.URI ---
HPI - URI/Sore Throat General Chief Complaint: Upper Respiratory Symptoms Stated Complaint: Runny Nose, Mucus, Sore Throat Time Seen by Provider: 03/04/25 12:21 Source: patient and old records reviewed Mode of arrival: ambulatory Limitations: no limitations History of Present Illness ED Provider: GRACIELA CAMPO Narrative: 29 yo female with PMH of graves disease here with c/o nasal congestion and green phlegm has sore throat as well. She tried claritin and sudafed with little relief. She has not had fevers. She states her medications are not helping. She has facial pain as well. MD elicited complaint: sinus pain Onset (ago): week(s) (2) Consistency: progressively worsening Severity: moderate Description of mucous: green Able to tolerate fluids by mouth: Yes Exacerbating factors: changing head position Relieving factors: nothing Associated symptoms: headache, rhinorrhea and nasal congestion Treatments prior to arrival: other Related Data Home Medications ?Medication ?Instructions ?Recorded ?Confirmed desogestrel-e.estradiol 0.15 1 tab PO DAILY 11/07/21 mg-0.02 mg()/e.estrad 0.01 mg(5) tablet (Kariva ()) Previous Rx's ?Medication ?Instructions ?Recorded amoxicillin 875 mg-potassium 1 tab PO Q12H 10 days #20 tabs 09/15/22 clavulanate 125 mg tablet metronidazole 500 mg tablet 500 mg PO Q12H 7 days #14 tabs 03/15/23 cetirizine 10 mg capsule (All Day 10 mg PO DAILY #7 caps 02/04/24 Allergy (cetirizine)) fluticasone propionate 50 2 spray intranasal DAILY 7 days 02/04/24 mcg/actuation nasal #16 grams spray,suspension (Flonase Allergy Relief) amoxicillin 875 mg-potassium 1 tab PO BID #14 tabs 03/04/25 clavulanate 125 mg tablet prednisone 20 mg tablet 40 mg (2 x 20 mg) PO DAILY 5 days 03/04/25 #10 tabs Allergies Allergy/AdvReac Type Severity Reaction Status Date / Time No Known Allergies Allergy Verified 03/04/25 12:23 Review of Systems Review of Systems: Constitutional : No Fever, No Chills, No Fatigue ENT/Mouth : No sore throat, No Rhinorrhea, pos sinus pain and pos congestion Eyes: No Eye Pain, No Swelling, No Redness Cardiovascular : No Chest Pain, No SOB, No Dyspnea on Exertion Respiratory : No Cough, No Sputum Gastrointestinal : No Nausea, No Vomiting, No Diarrhea, No abdominal Pain Genitourinary : No Dysuria, No Urinary Frequency, No Hematuria, Musculoskeletal : No joint pain, No Myalgias, No Joint Swelling Skin : No Skin Lesions, No rash Neuro : No Weakness, No Numbness, No Dizziness, positive Headache All other systems reviewed and are negative [facility] Past Medical History Attestation statement: The following information was validated with the patient. Source: old records reviewed Medical History COVID-19 Graves' disease Surgical History History of breast surgery Family History Family History Father HTN (hypertension) Mother No problems noted. Maternal Grandmother Alzheimer's dementia Maternal Grandfather Kidney disease Dialysis patient Paternal Grandmother Mitral valve prolapse Colon cancer Paternal Grandfather CAD (coronary artery disease) Social History Social History Household Members: Significant Other and Children Household Members Other:: Children of significant other Housing: Apartment Are you a primary care program director to a significant other at home: No Do you presently have visiting nurse or other home services: No Alcohol intake: never Patient Tobacco Use Status: Never used Tobacco Advance Directives: No Advance Directives Information Provided: Yes Do you have a plan to hurt others: No Plan Physical Exam Vital Signs: Vital Signs: Last Vital Signs Temp 98.6 F 03/04/25 12:21 Pulse 104 H 03/04/25 12:21 Resp 16 03/04/25 12:21 BP 131/72 03/04/25 12:21 Pulse Ox 100 03/04/25 12:21 BMI result Body Mass Index 25.1 Appearance: Alert. Oriented X3. No acute distress. Eyes: Pupils equal, round and reactive to light. ENT: Pharynx normal. sinus ttp and pain on bilateral max sinus, TMs normal bilaterally Neck: Normal inspection. Neck supple. CVS: Normal heart rate and rhythm. Pulses normal. Respiratory: No respiratory distress. Breath sounds normal. Abdomen: Soft and nontender. Skin: Skin warm and dry. Normal skin color. Normal skin turgor. Extremities: No lower extremity edema. No calf ttp Neuro: Oriented X 3. No motor deficit. No sensory deficit. CN2-12 intact Medical Decision Making Medical Decision Making [facility] Narrative: 29 yo female with graves disease here with c/o sinus pain and pressure with green sputum she has sinus pressure and pain not toxic and no confusion has no meningeal signs at this time will start on augmentin and prednisone for sinusitits. Differential Diagnosis Differential Diagnoses: The differential diagnosis associated with the presentation includes sinusitis, viral syndrome External Record Review External record reviewed: Outpatient record Prescription Management I considered prescription management with: Antibiotic and Other Discharge Plan Discharge Clinical Impression: Sinusitis Qualifiers: Sinusitis location: maxillary Chronicity: acute Recurrence: non-recurrent Qualified Code(s): J01.00 - Acute maxillary sinusitis, unspecified Patient Disposition: Home, Self-Care Instructions: Sinusitis (ED) Additional Instructions: take steroids and finish antiobitics. start claritin again when you are finished with medications return for any worsening symptoms or concerns On amoxicillin-clavulanate, softer bowel movements are to be expected. Call your provider if you move your bowels more than 4 times a day, your bowel movements are almost all liquid, or you get a rash.? Prescriptions: New prednisone 20 mg tablet 40 mg PO DAILY 5 Days Qty: 10 0RF amoxicillin-pot clavulanate 875-125 mg tablet 1 tab PO BID Qty: 14 0RF No Action amoxicillin-pot clavulanate 875-125 mg tablet 1 tab PO Q12H 10 Days Qty: 20 0RF metronidazole 500 mg tablet 500 mg PO Q12H 7 Days Qty: 14 0RF fluticasone propionate [Flonase Allergy Relief] 50 mcg/actuation spray,suspension 2 spray intranasal DAILY 7 Days Qty: 16 0RF Rx Instructions: administer into each nostril All Day Allergy (cetirizine) 10 mg capsule 10 mg PO DAILY Qty: 7 0RF desog-e.estradiol/e.estradiol [Kodyiva (28)] 0.15-0.02 mgx21 /0.01 mg x 5 tablet 1 tab PO DAILY Print Language: Chadian
[2025-03-04 13:02] VITALS: BP 131/72; PULSE 104; RESP 16; TEMP 37; O2SAT 100
== END 2025-03-04 12:32 | disposition home or self-care (01) ==
PROVIDERS: Emergency Provider Emergency Medicine; PCP Family Medicine
DX: J01.00 Acute maxillary sinusitis, unspecified (principal); R09.81 Nasal congestion; J02.9 Acute pharyngitis, unspecified; E05.00 Thyrotoxicosis with diffuse goiter without thyrotoxic crisis or storm
CPT/HCPCS: 99282; 99283

== ENCOUNTER 2025-06-12 11:37 | Inpatient (IN) | payer OTHER, SELFPAY ==
[2025-06-12] VITALS (16 sets, daily range): BP systolic 104–142; BP diastolic 49–79; PULSE 89–132; RESP 12–29; TEMP 36.8–39.1; O2SAT 96–100; BMI 23.5
--- NOTE | 2025-06-12 | ECG_ITS ---
Test Reason : TACHYCARDIA Blood Pressure : */* mmHG Vent. Rate : 129 BPM Atrial Rate : 129 BPM P-R Int : 140 ms QRS Dur : 62 ms QT Int : 274 ms P-R-T Axes : 65 42 51 degrees QTcB Int : 401 ms Sinus tachycardia Septal infarct , age undetermined Abnormal ECG No previous ECGs available Referred By: Generic ED Physician Electronically Signed By: Tavares Berry
--- NOTE | ~2025-06-12 | XR_ITS ---
EXAMINATION: XR CHEST CLINICAL INFORMATION: cough, chills COMPARISON: None available. TECHNIQUE: 2 views of the chest were obtained. FINDINGS: No significant abnormality is noted involving the heart, lungs, mediastinum, bony thorax or soft tissues. Metal spring with central shaft projects over the midline of the lower neck on the frontal view only. XR/XR chest 2V IMPRESSION: No acute disease Electronically signed by: Maicol Garcia MD 06/12/2025 12:10 PM EDT
--- NOTE | 2025-06-12 11:45 | ED_ITS ---
HPI - General Adult General Chief complaint: Upper Respiratory Symptoms Stated complaint: chill couple of days Time Seen by Provider: 06/12/25 12:44 Source: patient, RN notes reviewed and old records reviewed Mode of arrival: ambulatory Limitations: no limitations History of Present Illness ED Provider: ALVA Mendoza HPI narrative: 29-year-old female with medical history of Graves disease presents to the ED due to 3 days of fever, chills, cough. Patient states she woke up 3 days ago not feeling well, developing a fever, chills, cough and feeling like her ?lungs were hurting?. Patient states she has taken ibuprofen at home which relieves her symptoms, but is concerned due to symptoms returning. Patient reports history of Graves disease, was started on medication in January however does not follow up this PCP anymore, and has not been on medication for the past 2 months. Patient states her dad and her 3-year-old daughter had same symptoms approximately 2 weeks ago. Denies recent travel, chest pain, SOB, abd pain, nausea, vomiting, diarrhea, balck/tarry stool MD complaint: fever, chills, cough Related Data Home Medications ?Medication ?Instructions ?Recorded ?Confirmed No Known Home Meds 06/12/25 06/12/25 Allergies Allergy/AdvReac Type Severity Reaction Status Date / Time No Known Allergies Allergy Verified 06/12/25 11:49 Review of Systems 2 Review of Systems: CONST: POS for fever, body aches and chills. HENT: Negative for neck pain/stiffness, headache, congestion, sore throat, swelling. EYES: Negative for discharge/pain or vision changes. RESP: Negative for hemoptysis and shortness of breath. POS cough CV: Negative chest pain, difficulty breathing, palpitations. ABD: Negative pain, nausea, vomiting. : Negative increase frequency, dysuria, blood in urine or stool. MUSC: Negative for muscle aches, edema. SKIN: Negative rash, lesions/sores. NEURO: Negative headache, dizziness, weakness. Yes all other systems are reviewed and are negative PMFSH Past Medical History Attestation statement: The following information was validated with the patient. Source: old records reviewed and nursing notes reviewed Medical History COVID-19 Graves' disease Surgical History History of breast surgery Family History Family History Father HTN (hypertension) Mother No problems noted. Maternal Grandmother Alzheimer's dementia Maternal Grandfather Kidney disease Dialysis patient Paternal Grandmother Mitral valve prolapse Colon cancer Paternal Grandfather CAD (coronary artery disease) Social History Social History Household Members: Significant Other and Children Household Members Other:: Children of significant other Housing: House Are you a primary infant childcare provider to a significant other at home: No Do you presently have visiting nurse or other home services: No Alcohol intake: never Patient Tobacco Use Status: Never used Tobacco Smoked in Last 30 Days: No e-Cigarette/Vaping Use: Never Used Patient Interested in Nicotine Replacement: No Patient Given Instructions on How to Stop Smoking: No Second Hand Smoke Exposure: No Use of substances other than those prescribed or required for medical reasons: No Currently Displaying Signs/Symptoms of Drug Intoxication Withdrawal: No Have you been hit, kicked, punched, or otherwise hurt by someone within the past year? If so, by whom?: No Do you feel safe in your current relationship?: Yes Is there a partner from a previous relationship who is making you feel unsafe now?: No Are you made to feel afraid or neglected: No Spiritual Healthcare Practices: none Advance Directives: No Advance Directives Information Provided: Yes Advance Directives on File: No Do you have a plan to hurt others: No Plan Recently lost weight without trying: Yes How much weight loss: 2-13 pounds Eating poorly because of decreased appetite: No Nutrition screen score: 3 Nutrition Risks: No Nutritional Risk Patient : No : No Poor oral hygiene: No Physical Exam ED Vital Signs: Vital Signs - 24 hr 06/12/25 11:47 06/12/25 12:15 06/12/25 12:50 Temperature 102.4 F H 100.1 F 100.1 F Pulse Rate 123 H 132 H Respiratory Rate 18 20 Blood Pressure 134/77 142/79 H Pulse Oximetry 99 100 Oxygen Delivery Method Room Air Room Air 06/12/25 13:06 06/12/25 13:18 06/12/25 13:23 Temperature 100.1 F 101.8 F H Pulse Rate 130 H Respiratory Rate 20 Blood Pressure 119/63 Pulse Oximetry 99 98 Oxygen Delivery Method Room Air Room Air 06/12/25 13:47 Temperature 99.2 F Pulse Rate Respiratory Rate Blood Pressure Pulse Oximetry Oxygen Delivery Method BMI result Body Mass Index 23.5 GENERAL APPEARANCE: ?AxOx4, no acute distress. HEENT: ?NC, AT. MMM. EOMI, clear conjunctiva, oropharynx clear. NECK: ?Supple without lymphadenopathy.? No stiffness or restricted ROM. HEART:? tachycardic rate and regular rhythm, normal S1/S2, no m/r/g LUNGS:? CTAB, moving air well. No crackles or wheezes are heard. ABDOMEN: ?Soft, nontender, nondistended with good bowel sounds heard. BACK: No CVAT, no obvious deformity. EXTREMITIES: ?Without cyanosis, clubbing or edema. NEUROLOGICAL: ?Grossly nonfocal. Alert and oriented, moving all 4 extremities. Skin: ?Warm and dry without any rash. Course Course Course Narrative: This is a rapid medical exam performed by Carlos Enrique Banks NP: Additional HPI, ROS, PE not included below will be deferred to primary provider. Patient is a 29-year-old F with pmhx hypothyroidism/Graves disease presenting to the ED with complaint of chills and cough for the past 3 days. Complains of lung pain/chest discomfort. Temp 102.4 in triage, last took medication around midnight. Will medicate with ibuprofen. Plan: Viral swabs, CXR Medications Administered Generic Name Dose Route Start Last Admin Trade Name Freq PRN Reason Stop Dose Admin Acetaminophen 650 mg 06/13/25 00:05 06/13/25 00:15 Acetaminophen 325 Mg Tablet PO 650 mg Q4H PRN Administration Pain, Mild 1-3,fever,headache Heparin Sodium (Porcine) 5,000 unit 06/12/25 16:00 06/13/25 08:37 Heparin Sodium,Porcine 5,000 Unit/Ml Vial SUBCUT Not Given Q8H MAXIME Methimazole 10 mg 06/13/25 09:00 06/13/25 08:37 Methimazole 10 Mg Tablet PO 10 mg DAILY MAXIME Administration Sodium Chloride 3 ml 06/13/25 08:00 06/13/25 08:37 0.9 % Sodium Chloride Flush 3 Ml Syringe IVFLUSH 3 ml QSHIFT MAXIME Administration Discontinued Medications Generic Name Dose Route Start Last Admin Trade Name Aminah PRN Reason Stop Dose Admin Lactated Ringer's 1,000 mls @ 999 mls/hr 06/12/25 13:09 06/12/25 14:15 Lr IV 06/12/25 14:09 Infused .Q1H1M ONE Infusion Acetaminophen 1,000 mg in 100 mls @ 400 mls/hr 06/12/25 13:09 06/12/25 13:28 Ofirmev IV 06/12/25 13:23 Infused ONCE ONE Infusion Ibuprofen 600 mg 06/12/25 11:49 06/12/25 11:52 Ibuprofen 600 Mg Tablet PO 06/12/25 11:50 600 mg ONCE ONE Administration Propranolol HCl 60 mg 06/12/25 15:15 06/12/25 15:58 Propranolol Hcl 20 Mg Tablet PO 06/12/25 15:16 60 mg ONCE ONE Administration Protocol Propylthiouracil 50 mg 06/12/25 15:15 06/12/25 15:58 Propylthiouracil 50 Mg Tablet PO 06/12/25 15:16 50 mg ONCE ONE Administration Medical Decision Making Medical Decision Making MDM Narrative: 29-year-old female with medical history of Graves disease presents to the ED due to 3 days of fever, chills, cough. Patient states she woke up 3 days ago not feeling well, developing a fever, chills, cough and feeling like her ?lungs were hurting?. Patient states she has taken ibuprofen at home which relieves her symptoms, but is concerned due to symptoms returning. Patient reports history of Graves disease, was started on medication in January however does not follow up this PCP anymore, and has not been on medication for the past 2 months. Patient states her dad and her 3-year-old daughter had same symptoms approximately 2 weeks ago. VS on initial observation-BP 134/77, pulse rate of 123, respiratory rate 18, afebrile with oral temp of 102.4?, O2 saturation 98% on room air. These vital signs were done in triage, patient was medicated with 600 mg of ibuprofen while awaiting to come back to me department. When patient got back to me in ED, I medicated her with IV fluids, a 1000 mg of Tylenol with varying sinus tachycardia between 120-139. Initially, I thought patient's tachycardia and fever was due to a viral syndrome due to recent sick contacts with daughter and father with same symptoms. However, when speaking with patient more getting information that she has not been taking her medication for a Graves disease I was then concerned for thyrotoxicosis. Course 16:34- CXR negative for acute cardiopulmonary process. Viral serology negative. Labs without leukocytosis/leukopenia, with mild left shift of 77.8, no bands, H and H stable, lactic acid WNL, no electrolyte abnormality, TSH critically low at <0.01. With these findings I treated the patient for thyrotoxicosis, patient medicated with 60 mg propanolol, 50 mg PTU for management. I spoke with Dr. Ling about my concerns for thyroxocicosis who came to see the patient and admited to ICU for observation and continued management. After medicating patient has tachycardia has now resolved with a heart rate of the 88, and patient is afebrile with oral temp of 98.4?. Differential Diagnosis Differential Diagnoses: The differential diagnosis associated with the presentation includes Thyrotoxicosis Viral illness COVID Flu Pneumonia Admission/Observation Consideration of admission/observation: Escalation of care including admission/observation considered Consult Healthcare Provider Management of the patient was discussed with: Notary Public (Manager Of Financial Planning Dr. Ling) I spoke to clay press operator Dr. Ling about this patient and my concern for thyrotoxicosis, who agreed to admit and observe in the ICU Lab Data MDM Lab Attestation statement: I reviewed the patient's lab results. 06/13/25 04:15 06/13/25 04:15 Labs: Lab Results 06/12/25 06/12/25 06/12/25 Range/Units 11:55 12:26 15:21 WBC 6.6 (4.8-10.8) X10*3/uL RBC 4.96 (4.20-5.50) X10*6/uL Hgb 13.0 (12.0-16.0) g/dl Hct 37.0 (37.0-47.0) % MCV 74.6 L (80.0-98.0) fL MCH 26.2 L (27.0-33.0) pg MCHC 35.1 H (31.0-35.0) g/dl RDW 13.4 (11.0-16.0) % Plt Count 166 D (160-400) X10*3/uL MPV 10.5 (9.4-12.3) fL Immature Gran % (Auto) 0.3 (0.0-0.4) % Neut % (Auto) 77.8 H (45-73) % Lymph % (Auto) 12.1 L (20-40) % [place] % (Auto) 9.4 (2-11) % Eos % (Auto) 0.2 (0-4) % Baso % (Auto) 0.2 (0-2) % Lymph # (Auto) 0.8 L (1.2-4.9) X10*3/uL [place] # (Auto) 0.6 (0.1-1.2) X10*3/uL Eos # (Auto) 0.0 (0.0-0.4) X10*3/uL Baso # (Auto) 0.0 (0.0-0.2) X10*3/uL Abs Immat Gran (auto) 0.02 (0.00-0.03) X10*3/uL Absolute Neuts (auto) 5.2 (2.0-8.3) x10*3/uL Absolute Nucleated RBC 0.000 (0.0-0.012) X10*3/uL Nucleated RBC % (auto) 0.0 (0.0-0.2) /100WBC Sodium 139 (135-145) mmol/L Potassium 3.5 (3.3-5.1) mmol/L Chloride 106 (96-108) mmol/L Carbon Dioxide 25 (22-29) mmol/L Anion Gap 12 (12-20) BUN 7 L (9-16) mg/dL Creatinine 0.58 (0.5-1.4) mg/dL Estim Creat Clear Calc 111.1 Estimated GFR > 60 Random Glucose 108 (60-115) mg/dL Lactic Acid 0.6 (0.5-2.0) mmol/L Calcium 9.1 (8.4-10.2) mg/dL Total Bilirubin 0.4 (0.0-1.0) mg/dL AST 46 H (5-31) U/L ALT 65 H (0-31) U/L Alkaline Phosphatase 110 (39-117) U/L Total Protein 7.7 (6.5-8.0) g/dL Albumin 4.3 (3.5-5.0) g/dL TSH < 0.01 L (0.32-4.0) uIU/mL Free T4 2.18 H (0.71-1.85) ng/dL COVID-19 (JEY) Negative (Negative) COVID-19 Clin Com See Note Influenza Type A (JUAN) Negative (Negative) Influenza Type B (JUAN) Negative (Negative) Influenza A & B Note See Note Independent Interpretation I performed an independent interpretation of an: EKG and Plain X-Ray Interpretation: I independently interpreted the EKG which reveals sinus tachycardia without ST- elevation/depression, T-wave abnormality Vent. Rate : 129 BPM Atrial Rate : 129 BPM P-R Int : 140 ms QRS Dur : 62 ms QT Int : 274 ms P-R-T Axes : 65 42 51 degrees QTcB Int : 401 ms Sinus tachycardia Septal infarct , age undetermined Abnormal ECG No previous ECGs available I independently interpreted the CXR which was negative for acute cardiopulmonary processes, I agree with the radiologist's interpretation Radiology Impression Discussion of test interpretation with radiology: I have reviewed the radiologist's reading. Radiologist Impression: CXR FINDINGS: No significant abnormality is noted involving the heart, lungs, mediastinum, bony thorax or soft tissues. Metal spring with central shaft projects over the midline of the lower neck on the frontal view only. XR/XR chest 2V IMPRESSION: No acute disease Electronically signed by: Maicol Garcia MD 06/12/2025 12:10 PM EDT Dictated By: Maicol Garcia MD Signed By: <Electronically signed by Maicol Garcia MD in OV> 06/12/25 1210 External Record Review External record reviewed: Inpatient record, Office record and Outpatient record Chronic Conditions Patient?s care impacted by: Other (Graves disease) Critical Care Time Critical Care Time Total Critical Care Time: 53 Discharge Plan Discharge Clinical Impression: Thyrotoxicosis Patient Disposition: Admitted As Inpatient Interventions: Admission Worksheet (ED) Last Done: 06/12/25 17:32 Discharge Date/Time: 06/12/25 18:07
[2025-06-12 12:18] LABS: COVID-19 Test Negative (Negative); IDNOW Serial# 58CA691E
[2025-06-12 12:19] LABS: IDNOW Serial# 55D5AD1C; Influenza B2 Negative (Negative)
[2025-06-12 12:30] LABS: MANUAL DIFF FLAG NO
[2025-06-12 12:36] LABS: Hematocrit 37.0 % (37.0-47.0); Hemoglobin 13.0 g/dl (12.0-16.0); Imm Gran Abs Auto 0.02 X10*3/uL (0.00-0.03); Imm Gran Pct Auto 0.3 % (0.0-0.4); Lymphocytes Absolute Auto 0.8 X10*3/uL (1.2-4.9); Mean Corpuscular HGB Conc 35.1 g/dl (31.0-35.0); Mean Corpuscular Hemoglobin 26.2 pg (27.0-33.0); Mean Corpuscular Volume 74.6 fL (80.0-98.0); NRBC Abs Auto 0.000 X10*3/uL (0.0-0.012); NRBC Pct Auto 0.0 /100WBC (0.0-0.2); Platelet Count 166 X10*3/uL (160-400); Red Blood Count 4.96 X10*6/uL (4.20-5.50); White Blood Count 6.6 X10*3/uL (4.8-10.8)
[2025-06-12 12:47] LABS: Alanine Aminotransferase 65 U/L (0-31); Albumin Level 4.3 g/dL (3.5-5.0); Alkaline Phosphatase 110 U/L (39-117); Anion Gap 12 (12-20); Aspartate Amino Transferase 46 U/L (5-31); Blood Urea Nitrogen 7 mg/dL (9-16); Calcium 9.1 mg/dL (8.4-10.2); Carbon Dioxide 25 mmol/L (22-29); Chloride 106 mmol/L (96-108); Creatinine Clr Calc Pharmacy 111.1; Estimated Glomerular Filt Rate > 60; Potassium 3.5 mmol/L (3.3-5.1); Sodium 139 mmol/L (135-145); Total Protein 7.7 g/dL (6.5-8.0)
--- NOTE | 2025-06-12 12:53 | PC.NURSE ---
pt presents from waiting room. A&O x4, calm and cooperative with care cc: SOB chest pain and cough. In triage pt found to be febrile and tachy into the 130's. All other vital signs WNL. Pt does have a hx of grave's disease, however she has not seen her doctor in some time and was dropped by the practice. pt does not take daily medications. pt does not drink or smoke. She states that her dry cough started last night and persisted into this morning. 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 Pt noted to be speaking in complete sentences, with occasional pauses. Serology swabs obtained EKG obtained 20g IV access obtained in R-AC basic labs obtained. IBU 600mg given in triage w/ improvement in temp to 100.1 Pt awating ED provider eval
[2025-06-12] MEDS: Lactated Ringers 1,000 ML 999 ML IV (13:14)
[2025-06-12 14:10] LABS: Thyroid Stimulating Hormone < 0.01 uIU/mL (0.32-4.0)
--- NOTE | 2025-06-12 15:48 | P.HPCC_ITS ---
History of Present Illness Date of Service: 06/12/25 Chief Complaint: URI, thyrotoxicosis 29-year-old lady with underlying Graves disease not on treatment for the last 10 weeks presented on 06/12/2025 with 3 day complains of upper respiratory symptoms including fever, chills, cough. On ER evaluation patient febrile and tachycardic with suppressed TSH and thyroid hormone levels pending. Patient with significant symptomatic response to IV fluids, antipyretics, and beta serjio, admitted to intensive care unit for close monitoring for concern of thyrotoxicosis versus impending thyroid storm. Review of Systems 2 Constitutional: Constitutional: Reports chills, Denies daytime sleepiness, Denies excessive sweating, Denies fatigue, Reports fever(s), Denies lethargy, Denies malaise, Denies night sweats, Denies snoring and Denies weight loss Eyes: Eyes: Denies blurry vision and Denies itchy eyes ENT: Denies nasal congestion, Denies post nasal drip, Denies sinus pain, Denies sinus pressure and Denies other ( Thrush) Cardiovascular: Cardiovascular: Denies chest pain, Denies pedal edema, Denies dyspnea, Denies orthopnea and Denies paroxysmal nocturnal dyspnea Respiratory: Respiratory: Reports cough, Denies hemoptysis, Denies excessive phlegm production, Denies dyspnea, Denies snoring and Denies wheezing Gastrointestinal: Gastrointestinal: Denies abdominal pain and Denies heartburn Musculoskeletal: Musculoskeletal: Denies myalgias, Denies arthralgias and Denies joint swelling Integumentary/Breasts: Skin/Breast: Denies rash Neurologic: Denies memory loss and Denies seizure-like activity Psychiatric: Psychiatric: Denies abnormal sleep pattern, Denies anxiety and Denies memory loss Endocrine: Endocrine: Denies excessive sweating, Denies fatigue and Denies heat intolerance Hematologic/Lymphatic: Hematologic/Lymphatic: Denies easy bruising Allergic/Immunologic: Allergic/Immunologic: Denies itchy eyes, Denies seasonal rhinorrhea and Denies wheezing PMFSH Past Medical History Medical History COVID-19 Graves' disease Family History Family History Father HTN (hypertension) Mother No problems noted. Maternal Grandmother Alzheimer's dementia Maternal Grandfather Kidney disease Dialysis patient Paternal Grandmother Mitral valve prolapse Colon cancer Paternal Grandfather CAD (coronary artery disease) Surgical History Surgical History History of breast surgery Social History Social History Household Members: Significant Other and Children Household Members Other:: Children of significant other Housing: Apartment Are you a primary complex care nurse practitioner to a significant other at home: No Do you presently have visiting nurse or other home services: No Alcohol intake: never Patient Tobacco Use Status: Never used Tobacco Smoked in Last 30 Days: No Use of substances other than those prescribed or required for medical reasons: No Advance Directives: No Advance Directives Information Provided: Yes Patient : No Meds Allergies Allergy/AdvReac Type Severity Reaction Status Date / Time No Known Allergies Allergy Verified 06/12/25 11:49 Active Medications: Current Medications Heparin Sodium (Porcine) (Heparin Sodium,Porcine 5,000 Unit/Ml Vial) 5,000 unit SUBCUT Q8H MAXIME Home Medications ?Medication ?Instructions ?Recorded ?Confirmed ?Last Taken ?Type desogestrel-e.estradiol 0.15 1 tab PO DAILY 11/07/21 Unknown History mg-0.02 mg(21)/e.estrad 0.01 mg(5) tablet (Kariva (28)) Physical Exam 2 Vital Signs: Vital Signs: Last Vital Signs Temp 99.2 F 06/12/25 13:47 Pulse 130 H 06/12/25 13:18 Resp 20 06/12/25 13:18 BP 119/63 06/12/25 13:18 Pulse Ox 98 06/12/25 13:18 O2 Del Method Room Air 06/12/25 13:18 BMI result Body Mass Index 23.5 Const: General: no acute distress, alert and awake Eyes: Sclerae: sclerae normal EOM: EOMs intact bilaterally Neck: Neck: Yes no lymphadenopathy, Yes trachea midline and Yes supple Resp: Effort & Inspection: normal respiratory effort and no respiratory distress Auscultation: clear to auscultation bilaterally Cardio: Rate: tachycardic Rhythm: regular rhythm Heart sounds: no gallops, no murmurs and no rubs GI: Palpation (GI): Soft to palpation and Other GI palpation findings present ( Nontender) Auscultation: normal bowel sounds Extrem: General: Yes no pedal edema, No clubbing and No cyanosis Results Labs 06/12/25 12:26 06/12/25 12:26 Labs: Laboratory Results - last 24 hr 06/12/25 06/12/25 06/12/25 11:55 12:26 15:21 MCV 74.6 L MCH 26.2 L MCHC 35.1 H RDW 13.4 Plt Count 166 D MPV 10.5 Immature Gran % (Auto) 0.3 Neut % (Auto) 77.8 H Lymph % (Auto) 12.1 L [place] % (Auto) 9.4 Eos % (Auto) 0.2 Baso % (Auto) 0.2 Lymph # (Auto) 0.8 L [place] # (Auto) 0.6 Eos # (Auto) 0.0 Baso # (Auto) 0.0 Abs Immat Gran (auto) 0.02 Absolute Neuts (auto) 5.2 Absolute Nucleated RBC 0.000 Nucleated RBC % (auto) 0.0 Anion Gap 12 Estim Creat Clear Calc 111.1 Estimated GFR > 60 Random Glucose 108 Lactic Acid 0.6 Calcium 9.1 Total Bilirubin 0.4 AST 46 H ALT 65 H Alkaline Phosphatase 110 Total Protein 7.7 Albumin 4.3 TSH < 0.01 L COVID-19 (JEY) Negative COVID-19 Clin Com See Note Influenza Type A (JUAN) Negative Influenza Type B (JUAN) Negative Influenza A & B Note See Note Imaging Radiologist's Impressions: Impressions Chest X-Ray 06/12/25 11:55 IMPRESSION: No acute disease Electronically signed by: Maicol Garcia MD 06/12/2025 12:10 PM EDT Assessment and Plan (1) URI (upper respiratory infection): Status: Acute (2) Graves disease: Status: Acute (3) Thyrotoxicosis: Status: Acute Plan Assessment: 29-year-old lady admitted with upper respiratory symptoms and thyrotoxicosis with concern for possible impending thyroid storm. Plan: Neuro: No acute issues. Cardiac: No acute issues. Pulmonary: Upper respiratory infection. Renal: No acute issues. Endo: Hyperthyroidism/Graves, concern for thyrotoxicosis. Status post PTU/beta serjio. Thyroid hormone levels are pending. May require additional PTU/glucocorticoids/Lugol's solution GI: No acute issues. ID: No acute issues Heme/Onc: No acute issues. Psych: No acute issues. Miscellaneous: No acute issues. Prophylaxis: Heparin Diet: Regular
[2025-06-12 17:23] LABS: Free T4 (Free Thyroxine) 2.18 ng/dL (0.71-1.85)
--- NOTE | 2025-06-12 18:01 | PHA.MEDREC ---
Addendum entered by Antonio Lay RPh 06/12/25 18:05: Reviewed by [facility]. Methimazole and Metoprolol were left off the med rec and the provider was made aware. Original Note: Pharmacy Consult ? Medication Reconciliation Pharmacy has completed the medication reconciliation. Patient states she was taking Methimazole 10 mg, last filled 01/26/25 and Metoprolol tart 25 mg, last filled 12/13/24 , however she hasn't taken since March.
--- NOTE | 2025-06-12 18:07 | PC.NURSE ---
Moved from ED 24 to ICU 261 at this time.
--- NOTE | 2025-06-12 18:12 | PC.NURSE ---
Nurse to nurse report given at bedside to MALLIKA Villarreal
[2025-06-13] VITALS (12 sets, daily range): BP systolic 95–118; BP diastolic 49–69; PULSE 65–112; RESP 15–30; TEMP 36.1–39.3; O2SAT 95–100; BMI 23.5
[2025-06-13 04:22] LABS: MANUAL DIFF FLAG NO
[2025-06-13 04:23] LABS: Hematocrit 34.2 % (37.0-47.0); Hemoglobin 11.8 g/dl (12.0-16.0); Imm Gran Abs Auto 0.01 X10*3/uL (0.00-0.03); Imm Gran Pct Auto 0.3 % (0.0-0.4); Lymphocytes Absolute Auto 1.2 X10*3/uL (1.2-4.9); Mean Corpuscular HGB Conc 34.5 g/dl (31.0-35.0); Mean Corpuscular Hemoglobin 26.3 pg (27.0-33.0); Mean Corpuscular Volume 76.2 fL (80.0-98.0); NRBC Abs Auto 0.000 X10*3/uL (0.0-0.012); NRBC Pct Auto 0.0 /100WBC (0.0-0.2); Platelet Count 162 X10*3/uL (160-400); Red Blood Count 4.49 X10*6/uL (4.20-5.50); White Blood Count 3.5 X10*3/uL (4.8-10.8)
[2025-06-13 04:37] LABS: Alanine Aminotransferase 46 U/L (0-31); Albumin Level 3.6 g/dL (3.5-5.0); Alkaline Phosphatase 111 U/L (39-117); Anion Gap 12 (12-20); Aspartate Amino Transferase 38 U/L (5-31); Blood Urea Nitrogen 6 mg/dL (9-16); Calcium 8.6 mg/dL (8.4-10.2); Carbon Dioxide 21 mmol/L (22-29); Chloride 110 mmol/L (96-108); Creatinine Clr Calc Pharmacy 121.6; Estimated Glomerular Filt Rate > 60; Magnesium 1.9 mg/dL (1.6-2.6); Potassium 3.8 mmol/L (3.3-5.1); Sodium 139 mmol/L (135-145); Total Protein 6.4 g/dL (6.5-8.0)
[2025-06-13 05:03] LABS: Thyroid Stimulating Hormone < 0.01 uIU/mL (0.32-4.0)
--- NOTE | 2025-06-13 05:04 | PC.NURSE ---
Upon initial assessment at 1999- pt A&Ox4, calm/cooperative, REY. Tmax 102.8 orally; PRN APAP administered with good effect. NSR on tele; HR 60-90s, up to 110s with exertion. SBP >90, MAP >65. Reports chest tightness with nonproductive cough. SpO2 >92%. On droplet precautions pending respiratory panel. Tolerating small PO intake. No BM. Voiding in bathroom. Skin intact. Repositions self independently. Pt/family informed of plan of care. Bed locked in lowest position, alarm on, call de jesus within reach. See EMR/flowsheet for additional details.
[2025-06-13] MEDS: 0.9 % Sodium Chloride Flush 3 ML SYRINGE IVFLUSH (08:37)
--- NOTE | 2025-06-13 09:23 | P.PNCC_ITS ---
Subjective Subjective Date of Service: 06/13/25 Interval History: 29-year-old lady with underlying Graves disease not on treatment for the last 10 weeks presented on 06/12/2025 with 3 day complains of upper respiratory symptoms including fever, chills, cough. On ER evaluation patient febrile and tachycardic with suppressed TSH and thyroid hormone levels pending. Patient with significant symptomatic response to IV fluids, antipyretics, and beta serjio, admitted to intensive care unit for close monitoring for concern of thyrotoxicosis versus impending thyroid storm. However, her thyroid hormone level is only minimally elevated from normal. No events overnight. Critical Care Time (minutes): 0 Physical Exam 2 Vital Signs: Vital Signs: Last Vital Signs Temp 97.0 F 06/13/25 08:00 Pulse 84 06/13/25 09:00 Resp 19 06/13/25 09:00 BP 99/52 L 06/13/25 09:00 Pulse Ox 100 06/13/25 09:00 O2 Del Method Room Air 06/13/25 09:00 BMI result Body Mass Index 23.5 Const: General: no acute distress, alert and awake Eyes: Sclerae: sclerae normal EOM: EOMs intact bilaterally Neck: Neck: Yes no lymphadenopathy, Yes trachea midline and Yes supple Resp: Effort & Inspection: normal respiratory effort and no respiratory distress Auscultation: clear to auscultation bilaterally Cardio: Rate: regular rate Rhythm: regular rhythm Heart sounds: no gallops, no murmurs and no rubs GI: Palpation (GI): Soft to palpation and Other GI palpation findings present ( Nontender) Auscultation: normal bowel sounds Extrem: General: Yes no pedal edema, No clubbing and No cyanosis Objective Data Labs 06/13/25 04:15 06/13/25 04:15 Labs: Laboratory Results - last 24 hr 06/12/25 06/12/25 06/12/25 11:55 12:26 15:21 WBC 6.6 RBC 4.96 Hgb 13.0 Hct 37.0 MCV 74.6 L MCH 26.2 L MCHC 35.1 H RDW 13.4 Plt Count 166 D MPV 10.5 Immature Gran % (Auto) 0.3 Neut % (Auto) 77.8 H Lymph % (Auto) 12.1 L [place] % (Auto) 9.4 Eos % (Auto) 0.2 Baso % (Auto) 0.2 Lymph # (Auto) 0.8 L [place] # (Auto) 0.6 Eos # (Auto) 0.0 Baso # (Auto) 0.0 Abs Immat Gran (auto) 0.02 Absolute Neuts (auto) 5.2 Absolute Nucleated RBC 0.000 Nucleated RBC % (auto) 0.0 Sodium 139 Potassium 3.5 Chloride 106 Carbon Dioxide 25 Anion Gap 12 BUN 7 L Creatinine 0.58 Estim Creat Clear Calc 111.1 Estimated GFR > 60 Random Glucose 108 Lactic Acid 0.6 Calcium 9.1 Phosphorus Magnesium Total Bilirubin 0.4 AST 46 H ALT 65 H Alkaline Phosphatase 110 Total Protein 7.7 Albumin 4.3 TSH < 0.01 L Free T4 2.18 H COVID-19 (JEY) Negative COVID-19 Clin Com See Note Influenza Type A (JUAN) Negative Influenza Type B (JUAN) Negative Influenza A & B Note See Note 06/13/25 04:15 WBC 3.5 L RBC 4.49 Hgb 11.8 L Hct 34.2 L MCV 76.2 L MCH 26.3 L MCHC 34.5 RDW 13.4 Plt Count 162 MPV 10.7 Immature Gran % (Auto) 0.3 Neut % (Auto) 48.4 Lymph % (Auto) 32.6 Gil[place] % (Auto) 18.4 H Eos % (Auto) 0.0 Baso % (Auto) 0.3 Lymph # (Auto) 1.2 [place] # (Auto) 0.7 Eos # (Auto) 0.0 Baso # (Auto) 0.0 Abs Immat Gran (auto) 0.01 Absolute Neuts (auto) 1.7 L Absolute Nucleated RBC 0.000 Nucleated RBC % (auto) 0.0 Sodium 139 Potassium 3.8 Chloride 110 H Carbon Dioxide 21 L Anion Gap 12 BUN 6 L Creatinine 0.53 Estim Creat Clear Calc 121.6 Estimated GFR > 60 Random Glucose 95 Lactic Acid Calcium 8.6 Phosphorus 5.1 H Magnesium 1.9 Total Bilirubin 0.5 AST 38 H ALT 46 H Alkaline Phosphatase 111 Total Protein 6.4 L Albumin 3.6 TSH < 0.01 L Free T4 COVID-19 (JEY) COVID-19 Clin Com Influenza Type A (JUAN) Influenza Type B (JUAN) Influenza A & B Note Progress Note: A&P Assessment and plan (1) URI (upper respiratory infection): Status: Acute (2) Hyperthyroidism: Status: Acute (3) Graves disease: Status: Acute Plan Assessment: 29-year-old lady admitted with upper respiratory symptoms and hyperthyroidism with concern for possible impending thyroid storm. Plan: Neuro: No acute issues. Cardiac: No acute issues. Pulmonary: Upper respiratory infection. Renal: No acute issues. Endo: Hyperthyroidism/Graves. Status post PTU/beta serjio. Thyroid hormone level is minimally elevated from normal. No evidence of significant thyrotoxicosis and definitely not thyroid storm. GI: No acute issues. ID: No acute issues Heme/Onc: No acute issues. Psych: No acute issues. Miscellaneous: No acute issues. Prophylaxis: Heparin Diet: Regular Quality Stroke Does the patient have a stroke diagnosis?: No VTE Prior VTE?: No VTE Risk Level:: Medical - moderate - high VTE Device Contraindication: Treatment Not Indicated VTE Drug Contraindication: N/A - Med Ordered
[2025-06-13 09:31] LABS: Chlamydia pneumoniae PCR Not Detected (Not Detect.); Coronavirus 229E PCR Not Detected (Not Detect.); Coronavirus HKU1 PCR Not Detected (Not Detect.); Coronavirus NL63 PCR Not Detected (Not Detect.); Coronavirus OC43 PCR Not Detected (Not Detect.); RSV PCR Not Detected (Not Detect.); Rhino/Enterovirus PCR Detected (Not Detect.)
[2025-06-13 09:51] LABS: Influenza A H1 PCR Not Detected (Not Detect.); Influenza A H1-2009 PCR Not Detected (Not Detect.); Influenza A H3 PCR Not Detected (Not Detect.); SARS-CoV-2 PCR Not Detected (Not Detect.)
--- NOTE | 2025-06-13 11:42 | PM.DS ---
DS: Providers Provider Date of Service: 06/13/25 Date of admission: 06/12/25 15:46 Date of discharge: 06/13/25 Primary care physician: None Physician DS: Diagnosis Discharge Diagnosis (1) URI (upper respiratory infection): Status: Acute (2) Hyperthyroidism: Status: Acute (3) Graves disease: Status: Acute DS: Summary Hospital Course Hospital Course: from admission H+P by head cleaning porter Mayank Ling MD, 06/12/25: 29-year-old lady with underlying Graves disease not on treatment for the last 10 weeks presented on 06/12/2025 with 3 day complains of upper respiratory symptoms including fever, chills, cough. On ER evaluation patient febrile and tachycardic with suppressed TSH and thyroid hormone levels pending. Patient with significant symptomatic response to IV fluids, antipyretics, and beta serjio, admitted to intensive care unit for close monitoring for concern of thyrotoxicosis versus impending thyroid storm. She was given 1 dose of propranolol and 1 dose of PTU in the ED. She was admitted to the ICU and found to have rhinovirus infection and responded to symptomatic treatment with antipyretics and IV fluids. Tachycardia resolved as fever resolved. She was not thought to be in thyroid storm. TSH <0.01 but free T4 only 2.18, which is 1.18x the upper limit of normal. She was started on prior dose of methimazole 10 mg daily and discharged on this medication with instructions to repeat TSH, free T4, and free T3 in 4 weeks and to follow up with her computer systems security analyst Dr Lewis at [facility] in 4-6 weeks. She should establish primary care as soon as possible. Symptom relief for URI advised. Time Attestation Discharge Coordination Time (in mins): 45 Quality: Safe Use of Opioids Does Pt have an Active Cancer Diagnosis on the Problem List?: No Quality: Stroke Does the patient have a stroke diagnosis?: No Physical Exam Vital Signs: Vital Signs: Last Vital Signs Temp 97.0 F 06/13/25 08:00 Pulse 93 06/13/25 10:00 Resp 22 H 06/13/25 10:00 BP 112/68 06/13/25 10:00 Pulse Ox 99 06/13/25 10:00 O2 Del Method Room Air 06/13/25 10:00 BMI result Body Mass Index 23.5 Gen: in no acute distress HEENT: sclera anicteric, moist mucus membranes Neck: supple Lungs: clear to auscultation bilaterally Heart: regular rate and rhythm, no murmurs Abd: soft, non-tender, non-distended Ext: no edema Skin: warm/well-perfused Neuro: alert and oriented x3, no focal findings Psych: appropriate affect DS: Data Data Completed and Pending Completed studies during hospitalization [Text1]: Laboratory Results WBC 3.5 X10*3/uL (4.8-10.8) L 06/13/25 04:15 RBC 4.49 X10*6/uL (4.20-5.50) 06/13/25 04:15 Hgb 11.8 g/dl (12.0-16.0) L 06/13/25 04:15 Hct 34.2 % (37.0-47.0) L 06/13/25 04:15 MCV 76.2 fL (80.0-98.0) L 06/13/25 04:15 MCH 26.3 pg (27.0-33.0) L 06/13/25 04:15 MCHC 34.5 g/dl (31.0-35.0) 06/13/25 04:15 RDW 13.4 % (11.0-16.0) 06/13/25 04:15 Plt Count 162 X10*3/uL (160-400) 06/13/25 04:15 MPV 10.7 fL (9.4-12.3) 06/13/25 04:15 Immature Gran % (Auto) 0.3 % (0.0-0.4) 06/13/25 04:15 Neut % (Auto) 48.4 % (45-73) 06/13/25 04:15 Lymph % (Auto) 32.6 % (20-40) 06/13/25 04:15 Chester % (Auto) 18.4 % (2-11) H 06/13/25 04:15 Eos % (Auto) 0.0 % (0-4) 06/13/25 04:15 Baso % (Auto) 0.3 % (0-2) 06/13/25 04:15 Lymph # (Auto) 1.2 X10*3/uL (1.2-4.9) 06/13/25 04:15 Chester # (Auto) 0.7 X10*3/uL (0.1-1.2) 06/13/25 04:15 Eos # (Auto) 0.0 X10*3/uL (0.0-0.4) 06/13/25 04:15 Baso # (Auto) 0.0 X10*3/uL (0.0-0.2) 06/13/25 04:15 Abs Immat Gran (auto) 0.01 X10*3/uL (0.00-0.03) 06/13/25 04:15 Absolute Neuts (auto) 1.7 x10*3/uL (2.0-8.3) L 06/13/25 04:15 Absolute Nucleated RBC 0.000 X10*3/uL (0.0-0.012) 06/13/25 04:15 Nucleated RBC % (auto) 0.0 /100WBC (0.0-0.2) 06/13/25 04:15 Sodium 139 mmol/L (135-145) 06/13/25 04:15 Potassium 3.8 mmol/L (3.3-5.1) 06/13/25 04:15 Chloride 110 mmol/L (96-108) H 06/13/25 04:15 Carbon Dioxide 21 mmol/L (22-29) L 06/13/25 04:15 Anion Gap 12 (12-20) 06/13/25 04:15 BUN 6 mg/dL (9-16) L 06/13/25 04:15 Creatinine 0.53 mg/dL (0.5-1.4) 06/13/25 04:15 Estim Creat Clear Calc 121.6 06/13/25 04:15 Estimated GFR > 60 06/13/25 04:15 Random Glucose 95 mg/dL (60-115) 06/13/25 04:15 Lactic Acid 0.6 mmol/L (0.5-2.0) 06/12/25 15:21 Calcium 8.6 mg/dL (8.4-10.2) 06/13/25 04:15 Phosphorus 5.1 mg/dL (2.7-4.5) H 06/13/25 04:15 Magnesium 1.9 mg/dL (1.6-2.6) 06/13/25 04:15 Total Bilirubin 0.5 mg/dL (0.0-1.0) 06/13/25 04:15 AST 38 U/L (5-31) H 06/13/25 04:15 ALT 46 U/L (0-31) H 06/13/25 04:15 Alkaline Phosphatase 111 U/L (39-117) 06/13/25 04:15 Total Protein 6.4 g/dL (6.5-8.0) L 06/13/25 04:15 Albumin 3.6 g/dL (3.5-5.0) 06/13/25 04:15 TSH < 0.01 uIU/mL (0.32-4.0) L 06/13/25 04:15 Free T4 2.18 ng/dL (0.71-1.85) H 06/12/25 12:26 Respiratory Panel Broussard See Note 06/12/25 16:03 Adenovirus (Rapid PCR) Not Detected (Not Detect.) 06/12/25 16:03 B.pert (TEM-PCR) Not Detected (Not Detect.) 06/12/25 16:03 B.parapertussis DNA PCR Not Detected (Not Detect.) 06/12/25 16:03 C. pneumoniae DNA (PCR) Not Detected (Not Detect.) 06/12/25 16:03 Coronavirus OC43 (PCR) Not Detected (Not Detect.) 06/12/25 16:03 Coronavirus HKU1 (PCR) Not Detected (Not Detect.) 06/12/25 16:03 Coronavirus 229E (PCR) Not Detected (Not Detect.) 06/12/25 16:03 COVID-19 (JEY) Negative (Negative) 06/12/25 11:55 COVID-19 Clin Com See Note 06/12/25 11:55 Coronavirus NL63 (PCR) Not Detected (Not Detect.) 06/12/25 16:03 Human Metapneumovir PCR Not Detected (Not Detect.) 06/12/25 16:03 Influenza Type A (JUAN) Negative (Negative) 06/12/25 11:55 Influenza A (RT-PCR) Not Detected (Not Detect.) 06/12/25 16:03 Influenza A (H1) PCR Not Detected (Not Detect.) 06/12/25 16:03 Influ A (H1/09) PCR Not Detected (Not Detect.) 06/12/25 16:03 Influenza A (H3) PCR Not Detected (Not Detect.) 06/12/25 16:03 Influenza Type B (JUAN) Negative (Negative) 06/12/25 11:55 Influenza B (RT-PCR) Not Detected (Not Detect.) 06/12/25 16:03 Influenza A & B Note See Note 06/12/25 11:55 M. pneumoniae (PCR) Not Detected (Not Detect.) 06/12/25 16:03 Parainfluenza 1 (PCR) Not Detected (Not Detect.) 06/12/25 16:03 Parainfluenza 2 (PCR) Not Detected (Not Detect.) 06/12/25 16:03 Parainfluenza 3 (PCR) Not Detected (Not Detect.) 06/12/25 16:03 Parainfluenza 4 (PCR) Not Detected (Not Detect.) 06/12/25 16:03 RSV (PCR) Not Detected (Not Detect.) 06/12/25 16:03 Entero/Rhino (PCR) Detected (Not Detect.) A 06/12/25 16:03 SARS-CoV-2 RNA (RT-PCR) Not Detected (Not Detect.) 06/12/25 16:03 Impressions Chest X-Ray 06/12/25 11:55 IMPRESSION: No acute disease Electronically signed by: Maicol Garcia MD 06/12/2025 12:10 PM EDT Discharge Plan Discharge Anticipated Discharge Date/Time: 06/13/25 11:39 Patient Disposition: Home, Self-Care Discharge Diagnosis: untreated hyperthyroidism due to Graves disease Referrals: [facility] [place] [facility] [Provider Group, Internal Medicine] - 1 Week Rebeca Lewis MD [Physician, Endocrinology] - 6 Weeks [facility] [Primary Care Provider, Medical] - 1 Week Discharge Medications: New methimazole 10 mg Tablet 10 mg PO DAILY Qty: 90 0RF Discharge Orders: Discharge Order (Routine); Ordered 06/13/25 Ordered By: Erinn Burden Diet: Advance to usual diet Activity on Discharge: As tolerated Stand Alone Forms: Patient Portal Discharge page Print Language: Lao Other Ambulatory Orders: Triiodothyronine T3 Total (Routine) Timeframe: 4 Weeks Facility: [facility] - Location: Laboratory Ordered By: Erinn Burden Free T4 (Free Thyroxine) (Routine) Timeframe: 4 Weeks Facility: [facility] - Location: Laboratory Ordered By: Erinn Burden Thyroid Stimulating Hormone (Routine) Timeframe: 4 Weeks Facility: [facility] - Location: Laboratory Ordered By: Erinn Burden Care Plan Goals: prevent complications of hyperthyroidism Health Concerns: untreated hyperthyroidism due to Graves disease Plan of Treatment: take methimazole 10 mg daily repeat TSH and free T4 and free T3 in 4 weeks follow up with computer systems security analyst Dr Lewis in 4-6 weeks establish primary care as soon as possible cold medicines, ibuprofen for relief of viral symptoms Assessment: See Discharge Summary.
--- NOTE | 2025-06-13 13:24 | MHC.CM.PN ---
Patient was discharged prior to being seen by case management.
== END 2025-06-13 12:44 | disposition home or self-care (01) | DRG 723 ==
LOC: HO.ED 16:43 → HO.EDOVER 16:46 → HO.ICU 17:17 → HO.S3 06-13 11:03 → HO.ICU 06-13 11:47
PROVIDERS: Registered Nurse Community Health; Registered Nurse Emergency; Admitting Provider Internal Medicine Pulmonary Disease; Emergency Provider Emergency Medicine; Visit Provider Family Medicine
DX: B34.8 Other viral infections of unspecified site (principal); E05.00 Thyrotoxicosis with diffuse goiter without thyrotoxic crisis or storm; T38.2X6A Underdosing of antithyroid drugs, initial encounter; Z20.822 Contact with and (suspected) exposure to COVID-19; Z79.899 Other long term (current) drug therapy
CPT/HCPCS: 36415; 71046; 80053; 83605; 83735; 84100; 84439; 84443; 85025; 87502; 87633; 87635; 93005; 99285; J0131; J7120

== ENCOUNTER → 2025-06-12 11:48 | Outpatient (BNV) | payer OTHER, SELFPAY | PROVIDERS: Emergency Provider Emergency Medicine; Visit Provider Radiology Diagnostic Radiology | DX: R05.9 Cough, unspecified (principal); R68.83 Chills (without fever) | CPT/HCPCS: 71046 ==

== ENCOUNTER → 2025-06-12 12:22 | Outpatient (BNV) | payer OTHER, SELFPAY | PROVIDERS: Emergency Provider Emergency Medicine; Visit Provider Internal Medicine Pulmonary Disease | DX: J06.9 Acute upper respiratory infection, unspecified (principal); E05.00 Thyrotoxicosis with diffuse goiter without thyrotoxic crisis or storm | CPT/HCPCS: 99223; 99232 ==

== ENCOUNTER → 2025-06-12 12:38 | Outpatient (BNV) | payer OTHER, SELFPAY | PROVIDERS: Admitting Provider Internal Medicine Pulmonary Disease; Emergency Provider Emergency Medicine; Visit Provider Internal Medicine Cardiovascular Disease | DX: R00.0 Tachycardia, unspecified (principal) | CPT/HCPCS: 93010 ==

== ENCOUNTER → 2025-06-12 15:46 | Outpatient (BNV) | payer OTHER, SELFPAY | PROVIDERS: Admitting Provider Internal Medicine Pulmonary Disease; Emergency Provider Emergency Medicine; Visit Provider Family Medicine | DX: J06.9 Acute upper respiratory infection, unspecified (principal); E05.90 Thyrotoxicosis, unspecified without thyrotoxic crisis or storm; E05.00 Thyrotoxicosis with diffuse goiter without thyrotoxic crisis or storm | CPT/HCPCS: 99239 ==